=== PATIENT | female | born 1960 | race Caucasian/White ===

== ENCOUNTER → 2016-09-08 | Outpatient (CLI) | payer OTHER ==
[~2016-09-08] MED LIST: ATOR40TA59 PO; BACL10TA PO; CITA20TA5 PO; CRAN200C PO; CYAN50LO PO; CYCL10TA2 PO; DIAZEPAM10 MG PO; DICY10CA3 PO; DILT240C2 PO; ESTR0.9T PO; GABA-586 PO; GARL10002 PO; HYDR-2762 PO; HYDR25TA9 PO; HYDR4TAB PO; LABE300T PO; LEVO25TA4 PO; LEVO50TA5 PO; LIDO700A4 TP; MELO-156 PO; MIRT15TA PO; MIRT30TA3 PO; OMEG1CAP43 PO; OMEP40CA5 PO; OXYC-250 PO; OXYC-323 PO; ROPI1TAB PO
--- NOTE | 2016-09-08 20:49 | PAIN ---
DATE OF SERVICE: 09/08/2016 DIAGNOSES: 1. Lumbar radiculopathy with lumbar degenerative disk disease. 2. Cervical radiculopathy with cervical degenerative disk disease and post-cervical laminectomy syndrome. 3. Myofascial pain. HISTORY OF PRESENT ILLNESS: The patient is a 56-year-old female who returns for followup status post trigger point injections of the cervical and upper thoracic distribution, also medication management with oxycodone. The patient reports she had been doing much better after the last visit. She has had some significant pain in the left shoulder and upper extremity. We tried the Medrol Dosepak and some physical therapy, which has helped significantly. The patient also had her hips evaluated with orthopedist and she is doing more physical therapy for the left hip pain that she is having, which she reports is helping to a moderate extent. The patient reports no new motor or sensory deficits, no new bowel or bladder incontinence or other complaints. The patient reports pain in the base of the neck, more in the left shoulder, now in the left upper back, is a constant aching pain, is dull and stabbing, which is a 7 without medication, but is a 0 with medication Percocet that she is taking. The patient reports good results with this, again 75%-80% improvement with medications alone without any side effects. The patient reports no new changes or other conditions and feels that she is doing much better than she was on her last visit. PHYSICAL EXAMINATION: VITAL SIGNS: Shows blood pressure 130/70, pulse 83, respirations 20, temperature 98.3 degrees Fahrenheit, weight is 181 pounds. GENERAL: The patient is awake, alert, oriented, appropriate, very pleasant demeanor. HEENT: Shows normocephalic, atraumatic. Extraocular movements are intact and symmetrical. Oral cavity shows mucous membranes moist and pink. Dentition is intact. NECK: Shows anterior throat supple without palpable lymphadenopathy noted. Swallow reflex is symmetrical. CHEST: Shows normal on inspection. Breath sounds are clear to auscultation bilaterally. HEART: Shows S1 and S2 clear. ABDOMEN: Soft, obese, nontender, nondistended. BACK: Shows spine grossly midline. Cervical paraspinous muscle shows some moderate tenderness with palpation in the middle and inferior aspect of the left cervical paraspinous musculature with palpation ____ appears symmetrical on inspection with the right side. There is also some tenderness in the rhomboid distribution as well as the thoracic paraspinous musculature on the left side, some in the suprascapular region as well, less in the intrascapular region on the left side. EXTREMITIES: Upper extremities showed deep tendon reflexes 2+ in the biceps and triceps tendons. Motor exam ____ 4/5 with left volumetric weigher strength and 5/5 on the right. PLAN: Options were discussed with the patient. The patient's old chart was reviewed as was her current medication regimen and updated. Current review of systems is updated today as well. We will hold on any further injections as she feels she is doing much better. She would like to maintain her stretching and strengthening exercises that she does as well as heat and massage therapy. We will refill the patient's oxycodone with instructions, side effects to be aware of discussed as well. The patient will follow up in approximately 4 weeks or as needed. NATHAN VALERIO MD DR: SUMMER/jennie JOB#: [id number] / [id number]
== END | disposition home or self-care (01) ==
LOC: PNCL 10:14
PROVIDERS: ATTEND Anesthesiology
DX: M51.16 Intervertebral disc disorders with radiculopathy, lumbar region (principal); M50.10 Cervical disc disorder with radiculopathy, unspecified cervical region; M96.1 Postlaminectomy syndrome, not elsewhere classified; M79.1 Myalgia
CPT/HCPCS: 99212

== ENCOUNTER → 2016-10-21 | Outpatient (CLI) | payer OTHER ==
[~2016-10-21] MED LIST changes: +BUPIVACAINE MPF 0.25% 10 ML VIAL. ONE; +methylPREDNISolone ACETATE 40 MG/ML VIAL. ONE
--- NOTE | 2016-10-22 15:56 | PAIN ---
DATE OF SERVICE: 10/21/2016 PROGRESS NOTE FOR PAIN CLINIC DIAGNOSES: 1. Lumbar radiculopathy with lumbar degenerative disk disease. 2. Cervical radiculopathy with cervical degenerative disk disease and cervical post-laminectomy syndrome. 3. Myofascial pain. HISTORY OF PRESENT ILLNESS: The patient is a 56-year-old female, who returns for followup status post trigger point injections as well as previous cervical epidural steroid injections and medication management. The patient has been taking oxycodone recently, but reports this is upsetting her stomach significantly and we discussed some changes with this as well. The patient would like to try something different as she is having to eat food each time she takes her pills. She has been gaining some weight as well and reports that it is tearing upper stomach to a significant extent. The patient reports no other side effects with the medication and reports about a 50-75% improvement with the medication, but would prefer to take extended release which she can only take it once a day. We had tried Hysingla with the patient previously and we will try this again at a different dose to see if she has better response at this time to the medication and better longevity. The patient reports otherwise doing well, still significant pain in the base of the neck as well as in the left side as well as the shoulder and some in the upper back as well as the posterior aspect of the left shoulder. The patient reports some worse pain with movement of the neck especially on the left side in extension as a constant aching pain, worse at times, anywhere from 3-8 on a scale of 10 and currently at 3 on a scale of 10. Again, fairly well controlled with her Percocet, but tearing up her stomach to some extent as well. PHYSICAL EXAMINATION: VITAL SIGNS: The patient's blood pressure 117/75, pulse 90, respirations 18, temperature 98.4 degrees Fahrenheit. Height is 5 feet 3 inches, weighs 183 pounds. GENERAL: The patient is awake, alert, oriented, appropriate, very pleasant demeanor. HEENT: Shows normocephalic, atraumatic. Extraocular movements are intact and symmetrical. Oral cavity, mucous membranes are moist and pink. Dentition is intact. NECK: Shows anterior throat supple without palpable lymphadenopathy noted. Swallow reflex is symmetrical. CHEST: Shows normal on inspection. Breath sounds are clear to auscultation bilaterally. HEART: Shows S1 and S2 clear. ABDOMEN: Obese, soft, nontender, nondistended. No palpable organomegaly is noted. No rebound or guarding demonstrated. BACK: The patient's back shows spine grossly midline. Normal appearing cervical and lordotic curvatures and thoracic kyphotic curvature. With palpation, there is significant tenderness in the posterior cervical paraspinous musculature inferiorly as well as in the superior medial and lateral trapezius on the left, very significant, very firm and tender rope-like musculature consistent with trigger point areas of musculature, very tender with palpation, but without significant radiation. The patient's neck shows good rotation; again significant tenderness with far left lateral rotation and extension, but not with forward flexion or right lateral rotation. EXTREMITIES: Upper extremities show deep tendon reflexes at 2+ in the biceps and triceps tendons. Motor exam is approximately 4 on a scale of 5 with track rider on the left and 5/5 on the right. PLAN: Options were discussed with the patient and the patient's old chart was reviewed as her current medication regimen and updated. Current review of systems updated today as well. We will proceed with trigger point injections of the bilateral trapezius musculature as well as left cervical paraspinous musculature, left rhomboid musculature and right trapezius as well. Risks were discussed including but not limited to bleeding, infection, possibility of intravascular injection sequelae, pneumothorax, side effects of steroid medication, spread of local anesthetic and numbness as well as poor results regarding pain control. The patient understands and wishes to proceed. The patient will return to clinic in approximately 2 weeks. We will change the patient's medication from Percocet to extended release hydrocodone, Hysingla, 40 mg once daily. The patient was given instruction as well as side effects to be aware of with medication. The patient will follow up in approximately 4 weeks or sooner. We asked for her to call with a progress note at the end of next week when she has had some time to try the new medication and get some feedback on at that time. DIAGNOSES: 1. Myofascial pain. 2. Cervical radiculopathy with cervical degenerative disk disease and post-cervical laminectomy syndrome. PROCEDURE: Trigger point injections of the bilateral trapezius musculature, the bilateral rhomboid musculature, left cervical paraspinous musculature using 25-gauge needle. Medication injected is total of 9 mL of 0.25% bupivacaine and total of 40 mg Depo-Medrol. CONDITION AT DISCHARGE: The patient tolerated the procedure well, had no complications. NATHAN VALERIO MD DR: SUMMER/jennie JOB#: [id number] / [id number]
== END | disposition home or self-care (01) ==
LOC: PNCL 13:10
PROVIDERS: ATTEND Anesthesiology
DX: M79.1 Myalgia (principal); M50.120 Mid-cervical disc disorder, unspecified level; M96.1 Postlaminectomy syndrome, not elsewhere classified; M51.17 Intervertebral disc disorders with radiculopathy, lumbosacral region
CPT/HCPCS: 20553; J1030; J3490

== ENCOUNTER → 2016-12-30 | Outpatient (CLI) | payer OTHER ==
[~2016-12-30] MED LIST changes: -BUPIVACAINE MPF 0.25% 10 ML VIAL. ONE; -methylPREDNISolone ACETATE 40 MG/ML VIAL. ONE
--- NOTE | 2016-12-31 02:42 | PAIN ---
DATE OF SERVICE: 12/30/2016 PROGRESS NOTE FOR PAIN CLINIC DIAGNOSES: 1. Lumbar radiculopathy with lumbar degenerative disk disease. 2. Cervical radiculopathy, cervical degenerative disease and post-cervical laminectomy syndrome. 3. Myofascial pain. HISTORY OF PRESENT ILLNESS: The patient is a 56-year-old female, who returns for followup status post trigger point injections as well as medication management with hydrocodone. The patient had been doing fairly well, but reports that recently she has had weaned herself turn off the hydrocodone that was not working very well with had an extended release form as well and she seems to be well developing some physiologic tolerance to the medication and did try tramadol, which made her feel very ill and dysphoric. She tried only once and has been without pain medicine now significant increase in pain from 4 to 10 on a scale of 10 and 4 is with taking one of her 's Percocets. She did see on her visit today. Otherwise, the pain is in the base of the shoulders, neck, worse on the left than the right, aching, sharp, tingling, burning, severe, constant, radiating pain. The patient reports she has physical therapy ordered from her orthopedic surgeon as she does have a torn rotator cuff on the left side, but she has not started yet as she is afraid that the pain will get worse. She has not had some pain medication through this. The patient reports no new motor or sensory deficits, no new other complaints. PHYSICAL EXAMINATION: VITAL SIGNS: The patient's blood pressure is 147/84, pulse 87, respirations are 18, temperature is 98.1 degrees Fahrenheit. Height is 5 feet 3 inches, weight 184 pounds. GENERAL: The patient is awake, alert, oriented, appropriate, very pleasant demeanor. HEENT: Head shows normocephalic, atraumatic. Extraocular movements are intact and symmetrical. Oral cavity, mucous membranes are moist and pink. Dentition is intact. NECK: Shows anterior throat supple without palpable lymphadenopathy noted. Swallow reflex is symmetrical. CHEST: Shows normal on inspection. Breath sounds clear to auscultation bilaterally. HEART: Shows S1 and S2 clear. ABDOMEN: Soft, nontender, nondistended, obese. No organomegaly is noted. No rebound or guarding demonstrated. BACK: Shows spine grossly midline. Slight exaggeration of thoracic kyphosis and some mild flattening of lumbar lordotic curvature. Cervical paraspinous musculature shows some moderate tenderness with palpation bilaterally in the middle and inferior aspect of the cervical paraspinous muscles, also some tenderness on the right trapezius into the right lateral and posterior deltoid with palpation. The patient shows some decreased pain are decreased rotation range of motion and increase in pain with abduction of the left shoulder past about 45-50 degrees, but can raise is 90 degrees, but with has some significant loss of strength on resistance on the left side only. EXTREMITIES: Upper extremity deep tendon reflexes are 2+ in the biceps and triceps tendons. Motor exam in sensory scientist strength is 5/5 and equal. Options were discussed with the patient and the patient's old chart was reviewed as her current medication regimen updated. Current review of systems updated today as well. We will proceed with changing her hydrocodone to oxycodone 10 mg with instructions and side effects to be aware of discussed medication. The patient was given 1 month supply. Also, refill patient's Lidoderm patches as she reports good relief with these in the neck and shoulder as well as the low back. The patient was given instruction as well as side effects to be aware with each of the medications and will follow in approximately 4 weeks as scheduled was encouraged to follow up with her physical therapy scheduling ____ her health plan specialist and she is plan to do this earlier of this week. NATHAN VALERIO MD DR: SUMMER/jennie JOB#: [id number] / [id number]
== END | disposition home or self-care (01) ==
LOC: PNCL 11:29
PROVIDERS: ATTEND Anesthesiology
DX: M51.16 Intervertebral disc disorders with radiculopathy, lumbar region (principal); M50.10 Cervical disc disorder with radiculopathy, unspecified cervical region; M96.1 Postlaminectomy syndrome, not elsewhere classified; M79.1 Myalgia
CPT/HCPCS: 99214

== ENCOUNTER → 2017-03-17 | Outpatient (CLI) | payer OTHER ==
[~2017-03-17] MED LIST changes: -CRAN200C PO; +CRAN200C2 PO; -MELO-156 PO; +MELO7.5T29 PO; -OXYC-250 PO; +OXYC-328 PO
--- NOTE | 2017-03-18 06:45 | PAIN ---
DATE OF SERVICE: 03/17/2017 PROGRESS NOTE FOR PAIN CLINIC DIAGNOSES: 1. Lumbar radiculopathy with lumbar degenerative disk disease. 2. Cervical radiculopathy with cervical degenerative disk disease. 3. Myofascial pain. HISTORY OF PRESENT ILLNESS: The patient is a 56-year-old female, who returns for followup status post trigger point injections as well as medication management with oxycodone. The patient reports she has been doing very well with this with about an 80% improvement with the medications as well as trigger points in her upper back and more in the left shoulder than the right. The patient reports she is doing fairly well; however, she is having some gastrointestinal complaints lately with undergoing workup. She has an upper endoscopy scheduled in the first part of March. The patient reports that her pain has been well controlled with the medications, still has a significant pain in the base of the neck, shoulder, upper back, mid back on the left side greater than right, and as well as the left hip. The patient reports a 10 on a scale of 10 at its worst, a 3 at its least, it is a 3 currently. The patient reports a burning, aching, radiating mostly in the shoulder and neck, but again well controlled and feels fairly well today on her visit. The patient reports it does not awaken her from sleep at night. She feels much better with lying down, again medication helping with this as well. The patient reports no new motor or sensory deficits. No new bowel or bladder incontinence, but still significant gastrointestinal pain. She has been started on Zofran and Pepcid has been increased as well with some decrease in pain and reflux, but still significant. Also on Dexilant q.a.m. PHYSICAL EXAMINATION: VITAL SIGNS: Today the patient's blood pressure is 161/88, pulse 90, respirations 18, temperature 98.4 degrees Fahrenheit, height is 5 feet 3 inches, weighs 181 pounds. GENERAL: The patient is awake, alert, oriented, appropriate, very pleasant demeanor. HEENT: Head shows normocephalic, atraumatic. Extraocular movements are intact, symmetrical. Oral cavity, mucous membranes are moist and pink. Dentition is intact. NECK: Shows anterior throat supple without palpable lymphadenopathy noted. Swallow reflex is symmetrical. Neck shows full rotational motion of the cervical spine without difficulty or tenderness including extension and flexion. CHEST: Shows normal on inspection. Breath sounds clear to auscultation bilaterally. HEART: Shows S1 and S2 clear. No murmurs auscultated. ABDOMEN: Soft, obese, nontender, nondistended. No palpable organomegaly noted. No rebound or guarding demonstrated. No significant discomfort in the epigastric region with palpation as well. BACK: The patient's back shows spine grossly midline. Slight exaggeration of thoracic kyphosis and some mild flattening of lumbar lordotic curvature. No asymmetry and midline spine as noted. With palpation shows some moderate tenderness to palpation in the superior medial aspect of the trapezius on the left greater than right, but appears symmetrical without specific trigger points. She has very firm, diffuse tenderness throughout the trapezius as well as the rhomboid musculature on the left side, as well as the suprascapular region. Right side is supple and nontender. The patient shows only very mild tenderness with palpation in the low lumbar distribution of the lumbar paraspinous muscles, but only diffusely. EXTREMITIES: Upper extremity deep tendon reflexes at 2+ in the biceps and triceps tendons. Lower extremities are 1+ in the patellar and tendo calcaneus tendons. Motor exam is strong with shelf stocker strength rated at 5/5 as is biceps and triceps flexion, also dorsiflexion, extension, quadriceps and hamstring flexion rated at 5/5 and equal. Peripheral pulses are 2+ in the radial distribution and 1+ posterior tibial. No peripheral edema is noted in any of the extremities. Options were discussed with the patient and the patient's old chart was reviewed as her current medication regimen and updated. Current review of systems updated today as well. We will proceed with refill of oxycodone as well as Lidoderm patches with instructions, side effects to be aware of discussed with each of the medications. The patient was given a 2-month prescription. Return at that time or sooner if the myofascial pain increases and desires trigger points as she has done well with these in the past. NATHAN VALERIO MD DR: SUMMER/jennie JOB#: [id number] / [id number]
== END | disposition home or self-care (01) ==
LOC: PNCL 10:09
PROVIDERS: ATTEND Anesthesiology
DX: M51.36 Other intervertebral disc degeneration, lumbar region (principal); M50.30 Other cervical disc degeneration, unspecified cervical region; M54.12 Radiculopathy, cervical region; M54.16 Radiculopathy, lumbar region; M79.1 Myalgia
CPT/HCPCS: G0463

== ENCOUNTER → 2017-06-11 | Outpatient (CLI) | payer OTHER ==
[~2017-06-11] MED LIST changes: +DEXL60CA2 PO; +FAMO-63 PO; +ONDA4TAB7 PO; +VALIUM10 MG PO
--- NOTE | 2017-06-11 21:25 | PAIN ---
DATE OF SERVICE: 06/11/2017 PROGRESS NOTE FOR PAIN CLINIC DIAGNOSES: 1. Lumbar radiculopathy with lumbar degenerative disk disease. 2. Cervical radiculopathy with cervical degenerative disk disease. 3. Myofascial pain. HISTORY OF PRESENT ILLNESS: The patient is a 56-year-old female, who returns for followup status post trigger point injections as well as medication management with oxycodone. The patient reports that she has been doing very well with this and has been a very stable regimen. She has recently fallen, however about 5 weeks ago in her kitchen and injured her left shoulder. She has had some rotator cuff injury to the shoulder before, it has been putting off having a repair, but has now decided to go ahead and schedule this with her orthopedic surgeon. The patient reports that the pain is fairly well controlled, however with the oxycodone. She is not having too many side effects with the oxycodone, some constipation now was discussed. We will try some new medication for that today. The patient reports her pain is mainly in the base of the neck and left shoulder at this time, also in the low back and bilateral lower extremities, but which is well controlled. The patient reports her pain in the shoulder on the left and the neck is a 9 on a scale of 10 at its worse, 4 on average, is 4 today. The patient reports it is an aching, sharp, tingling and constant pain, worse after the fall a few weeks ago as noted. The patient reports no new motor or sensory deficits, no new bowel or bladder incontinence. The patient reports the pain awakens her from sleep sporadically, but not every night, usually when she lays on her left side or left shoulder. PHYSICAL EXAMINATION: VITAL SIGNS: Shows blood pressure 135/79, pulse is 87, respirations 20, temperature is 98.2 degrees Fahrenheit, height is 5 feet 3 inches, weight is 177 pounds. GENERAL: The patient is awake, alert, oriented, appropriate, very pleasant demeanor. HEENT: Head shows normocephalic, atraumatic. Extraocular movements are intact and symmetrical. Oral cavity, mucous membranes are moist and pink. Dentition is intact. NECK: Shows anterior throat supple without palpable lymphadenopathy noted. Swallow reflex is symmetrical. CHEST: Shows normal on inspection. Breath sounds are clear to auscultation bilaterally. HEART: Shows S1 and S2 clear. No murmurs auscultated. ABDOMEN: Soft, nontender, nondistended. No palpable organomegaly is noted. No rebound or guarding demonstrated. BACK: Shows spine grossly in the midline with a normal appearing thoracic kyphosis and lumbar lordotic curvature. Paraspinous musculature in the cervical distribution shows some minor tenderness with palpation on the left in the superior medial trapezius transferring out into the lateral trapezius with much more tender musculature in this region. The patient shows good rotational motion; however, the cervical spine, both laterally as well as extension and flexion without significant increase in pain. Low back shows good rotational motion as well without pain increased. Lumbar paraspinous musculature is symmetrical with palpation and shows some moderate tenderness with palpation bilaterally, but without radiation, without trigger points noted. EXTREMITIES: Lower extremities showed deep tendon reflexes 1+ in the patellar and tendo calcaneus tendons are equal. Motor exam is strong with 5/5 dorsiflexion, extension, quadriceps and hamstring flexion and symmetrical. Peripheral pulses are 1+. Upper extremities show deep tendon reflexes are 2+ in the biceps and triceps tendons. Motor exam is strong with meat counter worker strength, rated at 5/5 with biceps and triceps flexion, slightly weaker on the left with biceps flexion only with about a 4/5 and triceps at 5/5, right side is 5/5 and symmetrical. Peripheral pulses are 2+ in radial distribution without edema. PLAN: Options were discussed with the patient. The patient's old chart was reviewed as her current medication regimen updated. Current review of systems updated today as well and we will hold on any further injections at this time as she would like to wait for this, while she scheduled her rotator cuff surgery for her left shoulder. We will refill the patient's oxycodone for a 2-month supply and also Lidoderm patches and we will try new medication for constipation, Symproic 0.2 mg daily. The patient was given instructions as well as side effects to be aware of with the new medication as well as with her old medications and will follow up in approximately 2 months or sooner if necessary. NATHAN VALERIO MD DR: SUMMER/jennie JOB#: [id number] / [id number]
== END | disposition home or self-care (01) ==
LOC: PNCL 12:49
PROVIDERS: ATTEND Anesthesiology
DX: M51.16 Intervertebral disc disorders with radiculopathy, lumbar region (principal); M50.10 Cervical disc disorder with radiculopathy, unspecified cervical region; K59.00 Constipation, unspecified
CPT/HCPCS: 99212

== ENCOUNTER → 2017-08-18 | Outpatient (CLI) | payer OTHER | END | disposition home or self-care (01) | LOC: PNCL 13:34 | DX: M51.16 Intervertebral disc disorders with radiculopathy, lumbar region (principal); M50.10 Cervical disc disorder with radiculopathy, unspecified cervical region | CPT/HCPCS: 99212 ==

== ENCOUNTER → 2017-11-03 | Outpatient (CLI) | payer OTHER | END | disposition home or self-care (01) | LOC: PNCL 12:56 | DX: M51.16 Intervertebral disc disorders with radiculopathy, lumbar region (principal); Z98.890 Other specified postprocedural states | CPT/HCPCS: 99212 ==

== ENCOUNTER → 2017-12-29 | Outpatient (CLI) | payer OTHER | END | disposition home or self-care (01) | LOC: PNCL 12:51 | DX: M51.16 Intervertebral disc disorders with radiculopathy, lumbar region (principal); M50.10 Cervical disc disorder with radiculopathy, unspecified cervical region; M19.012 Primary osteoarthritis, left shoulder | CPT/HCPCS: 99212 ==

== ENCOUNTER → 2018-02-23 | Outpatient (CLI) | payer OTHER | END | disposition home or self-care (01) | LOC: PNCL 11:28 | DX: M51.16 Intervertebral disc disorders with radiculopathy, lumbar region (principal); M50.10 Cervical disc disorder with radiculopathy, unspecified cervical region; M25.512 Pain in left shoulder; M79.1 Myalgia | CPT/HCPCS: 99212 ==

== ENCOUNTER → 2018-04-20 | Outpatient (CLI) | payer OTHER ==
[~2018-04-20] MED LIST changes: -CITA20TA5 PO; +CITA20TA6 PO; +CITA20TA9 PO; -LABE300T PO; +LABE300T2 PO; +LORA1TAB PO; +PROP20TA PO
--- NOTE | 2018-04-20 17:15 | PAIN ---
DATE OF SERVICE: 04/20/2018 DIAGNOSES: 1. Lumbar radiculopathy with lumbar degenerative disk disease. 2. Cervical radiculopathy with cervical degenerative disk disease. 3. Left shoulder joint pain. 4. Myofascial pain. HISTORY OF PRESENT ILLNESS: The patient is a 57-year-old female who returns for followup status post previous trigger point injection as well as medication management with both oxycodone and Lidoderm patches. The patient reports she is doing fairly well with this, on a very stable regimen with her medications and Lidoderm patches with good pain relief both of the medial and low back, but she is having significant increased pain in her left hip and had a recent MRI scan of the left hip showing consistent with partial tear and/or tendinitis of the distal gluteus medius minimus at the insertion of the greater trochanter with mild inflammation adjacent. The patient reports she is seeing an orthopedic physician about this tomorrow near [facility]. She is still having significant pain in the low back, left leg, burning, radiating, cramping, stabbing at times. The patient reports it is a 10 on a scale of 10 at its worst, 9 on average and a 5 at its least and is a 9 today. The patient reports it is worse with walking, standing, changing positions, better with sitting or lying down, does awaken her from sleep occasionally, but not every night. The patient reports no new motor or sensory deficits, no side effects with the medications. Otherwise, doing fairly well, reports the medications still decrease the pain by about 70-75%, even with the new pain in the left hip. PHYSICAL EXAMINATION: VITAL SIGNS: The patient's blood pressure is 146/86, pulse 87, respirations 18, temperature is 98.7 degrees Fahrenheit, height is 5 feet 3 inches, weight is 184 pounds. GENERAL: The patient is awake, alert, oriented, appropriate, very pleasant demeanor. HEENT: Head shows normocephalic, atraumatic. Extraocular movements are intact, symmetrical. Oral cavity, mucous membranes are moist and pink. Dentition is intact. NECK: Shows anterior throat supple without palpable lymphadenopathy noted. Swallow reflex symmetrical. CHEST: Shows normal with inspection. Breath sounds clear to auscultation bilaterally. HEART: Shows S1, S2 clear. No murmurs auscultated. ABDOMEN: Soft, nontender, nondistended. No palpable organomegaly. No rebound or guarding demonstrated. BACK: Shows spine grossly in the midline. Normal appearing cervical lordotic curvature, thoracic kyphotic curvature, and lumbar lordotic curvature. The patient's cervical paraspinous muscle shows symmetrical on inspection, with palpation shows some mild tenderness only in the inferior aspect of the cervical paraspinous muscles diffusely with good rotational motion both laterally as well as extension and flexion without pain reported. Lumbar spine shows likewise symmetrical musculature with moderate tenderness with palpation in the lower lumbar distributions, more on the left than the right, but without significant radiation. The patient has good rotational motion, extension and flexion as well without difficulty. LOWER EXTREMITIES: Show deep tendon reflexes 1+ in the patellar and tendo-calcaneus tendons. Motor exam is strong 5/5 dorsiflexion and extension. Peripheral pulses are 1+ posterior tibia. No peripheral edema is noted. Options were discussed with the patient. The patient's old chart was reviewed as her current medication regimen updated. Current review of systems updated today as well. We will refill the patient's oxycodone for 2-month prescription. The patient has had appropriate urinalysis as well as appropriate K-TRACS reporting to date. Also, we will refill Lidoderm patch as she does quite well with these as well in the low back and left hip. The patient will follow up with her orthopedic surgeon tomorrow, and she will keep us informed if any interventional procedures are recommended as well. The patient will follow up in approximately 2 months or sooner as necessary. NATHAN VALERIO MD DR: SUMMER/jennie JOB#: [id number] / [id number]
== END | disposition home or self-care (01) ==
LOC: PNCL 13:15
PROVIDERS: ATTEND Anesthesiology
DX: M51.16 Intervertebral disc disorders with radiculopathy, lumbar region (principal); M50.10 Cervical disc disorder with radiculopathy, unspecified cervical region; M19.012 Primary osteoarthritis, left shoulder; M79.1 Myalgia
CPT/HCPCS: G0463

== ENCOUNTER → 2018-06-15 | Outpatient (CLI) | payer OTHER ==
--- NOTE | 2018-06-15 18:17 | PAIN ---
DATE OF SERVICE: 06/15/2018 DIAGNOSES: 1. Lumbar radiculopathy with lumbar degenerative disk disease. 2. Cervical radiculopathy with cervical degenerative disk disease. 3. Myofascial pain. 4. Left shoulder joint pain. HISTORY OF PRESENT ILLNESS: The patient is a 57-year-old female who returns for a followup status post medication management with both oxycodone and Lidoderm patches. The patient reports she is doing fairly well with this with about a 70-75% improvement with the pain medicine itself; however, the back is her chief complaint today with pain radiating to the left lower extremity, mostly in the posterior gluteus, posterior lateral thigh and posterior calf on the left side; worse with walking, standing, change in positions. The patient reports it keeps her from going to sleep. Once she is asleep, she sleeps fairly well. Pain is reported as a 10 on a scale of 10 at its worst, 6 on average, 4 at its least and is a 6 today. The patient reports it is aching, dull, burning, radiating, becoming more constant, more severe in the low back and left lower extremity as previously. The patient reports no new motor or sensory deficits, no new bowel or bladder incontinence. PHYSICAL EXAMINATION: VITAL SIGNS: The patient's blood pressure is 138/79, pulse 79, respirations are 16, temperature is 99.8 degrees Fahrenheit and weight is 183 pounds. GENERAL: The patient is awake, alert, oriented, appropriate, very pleasant demeanor. HEENT: Shows normocephalic, atraumatic. Extraocular movements are intact, symmetrical. Oral cavity shows mucous membranes moist and pink. Dentition is intact. NECK: Shows anterior throat supple without palpable lymphadenopathy noted. Swallow reflex is symmetrical. CHEST: Shows normal on inspection. Breath sounds clear to auscultation bilaterally. HEART: Shows S1, S2 clear. No murmurs auscultated. ABDOMEN: Soft, nontender, nondistended. No palpable organomegaly is noted. No rebound or guarding demonstrated. MUSCULOSKELETAL: Back shows spine grossly in the midline, normal appearing thoracic kyphosis and minor flattening of the lumbar lordotic curvature. Lumbar paraspinous muscle shows symmetrical on inspection; on palpation shows some moderate tenderness, but only diffusely in the low lumbar distribution bilaterally. The patient has good rotational motion of the lumbar spine, both laterally as well as extension and flexion without significant difficulty. Lower extremities show deep tendon reflexes 1+ in the patellar and tendo-calcaneus tendons. Motor exam is strong with 5/5 dorsiflexion and extension. Peripheral pulses are 1+ posterior tibia. No peripheral edema is noted bilaterally. PLAN: Options were discussed with the patient. The patient's old chart was reviewed as her medication regimen and updated. Current review of systems updated today as well and we will wait for results from the patient's MRI scan, which were requested from [facility] and discuss further potential for a lumbar epidural steroid injection as the patient is interested in this and would like to proceed, but would like to see the results of her MRI scan first. We requested that today, but is unavailable at the time of dictation. We will have the patient return in approximately 1 week and plan on lumbar epidural steroid injection at that time, pending MRI results. The patient was given refill prescription for oxycodone as well as Duragesic patch. The patient has had appropriate urinalysis and K-TRACS reporting to date. We will refill this for a 2-month period with instructions, side effects to be aware of discussed with each of the medications. The patient will follow up as scheduled. NATHAN VALERIO MD DR: SUMMER/jennie JOB#: [id number] / [id number]
== END | disposition home or self-care (01) ==
LOC: PNCL 13:05
PROVIDERS: ATTEND Anesthesiology
DX: M51.16 Intervertebral disc disorders with radiculopathy, lumbar region (principal); M50.10 Cervical disc disorder with radiculopathy, unspecified cervical region; M79.18 Myalgia, other site; M25.512 Pain in left shoulder
CPT/HCPCS: 99212

== ENCOUNTER → 2018-07-05 | Outpatient (CLI) | payer OTHER ==
--- NOTE | 2018-07-06 03:38 | PAIN ---
DATE OF SERVICE: 07/05/2018 DIAGNOSES: Lumbar radiculopathy with lumbar degenerative disk disease. HISTORY OF PRESENT ILLNESS: The patient is a 58-year-old female who returns for followup status post medication management. Also some previous trigger point injections. The patient is having significant pain in the low back and left lower extremity as previously. The patient reports this is beginning to get worse in the left lateral anterior thigh, anterior medial knee and medial lower leg radiating across the low back as well. The patient reports the pain is a 9 on a scale of 10 at its worst, 5 on average, 4 at its least and is a burning, aching, sharp, shooting, radiating, becoming more constant pain as well in the left leg and low back. The patient did have an MRI scan, which is dated 07/03/2017 showing degenerative changes at L3-L4 level with minimal disk bulge at L3-L4 causing minimal foraminal tapering bilaterally without impingement on the canal, minimal disk bulge, early posterior facet degenerative change at L4-L5 causing minimal right and mild left foraminal stenosis and no impingement on the canal. The patient reports it is worse with walking, standing, changing positions, radiating pain into the left lower extremity with sitting for prolonged periods as well. The patient reports it is better with lying down. It does awaken her from sleep about every 4-6 hours on the left side, especially if she lays on her left side. The patient reports no loss of motor function, but significant fatigability. The patient has been doing stretching and strengthening exercises on her own, has had physical therapy multiple times with the last about 4 months ago by her report. Also doing stretching and strengthening daily on her own from the physical therapy routines that she has been taught and walking daily or trying to as the pain is beginning to limit her ability to do so. The patient has been taking xakr-wrk-vpoztly Advil, ibuprofen as well as Tylenol and Aleve for the past looks like about 3 months or so in addition to her narcotic analgesics without significant improvement in this particular pain. Narcotic analgesics do decrease the pain by about 75%, but the nonsteroidal anti-inflammatories only decreasing by about 50% or so. The patient reports no side effects with these medications, but again the pain is still persistent and radiating into the left lower extremity in roughly a L3-L4 and L4-L5 dermatomal pattern. PHYSICAL EXAMINATION: VITAL SIGNS: Today, the patient's blood pressure is 144/87, pulse 90, respirations 18, temperature 98.3 degrees Fahrenheit, height 5 feet 2 inches and weighs 185 pounds. GENERAL: The patient is awake, alert, oriented, appropriate, very pleasant demeanor. HEENT: Head shows normocephalic and atraumatic. Extraocular movements are intact and symmetrical. Oral cavity: Mucous membranes are moist and pink. Dentition is intact. NECK: Shows anterior throat is supple without palpable lymphadenopathy noted. Swallow reflex is symmetrical. CHEST: Shows normal with inspection. Breath sounds are clear to auscultation bilaterally. HEART: Shows S1 and S2 clear. No murmurs are auscultated. ABDOMEN: Soft, nontender and nondistended. No palpable organomegaly is noted. No rebound or guarding demonstrated. BACK: Shows spine grossly in the midline. Normal appearing thoracic kyphosis and some minor flattening of the lumbar lordotic curvature. Lumbar paraspinous muscle shows symmetrical on inspection. With palpation shows some moderate tenderness diffusely bilaterally, but without radiation. The patient shows good rotational motion of the lumbar spine, both laterally as well as extension and flexion. No tenderness over the sacrum or sacroiliac regions or the spinous processes. EXTREMITIES: The patient's lower extremities show deep tendon reflexes at 1+ in the patellar and tendo-calcaneus tendons and equal. Motor exam is 5/5 with dorsiflexion, extension, quadriceps and hamstring flexion and symmetrical as well. Peripheral pulses are 1+ posterior tibia. No peripheral edema is noted. The patient does have a mild positive straight leg raise on the left side at about 40 degrees with decreased knee flexion, right side is negative. Gaenslen's and Javier's maneuvers are negative bilaterally. The patient is able to stand, stand on her toes without significant difficulty or loss of balance, walks with a slight shuffling gait, appears to favor the left lower extremity, very mildly, but not using any assistive device to ambulate. Options were discussed with the patient. The patient's old chart was reviewed as was her current medication regimen updated. Current review of systems updated today as well. The patient is having significant radicular pain in the left lower extremity in L3-L4 and L4-L5 dermatomal pattern, status post physical therapy, status post nonsteroidal anti-inflammatory use for 3 months without significant improvement, also continues daily activity, stretching and strengthening exercises on her own and walking with still significant pain and worsening radicular pain on the left in the L3-L4 and L4-L5 dermatomal distribution. We will preauthorize the patient for a lumbar epidural steroid injection in light of her new MRI scan in a radicular pattern on the left side as noted. The patient will be preauthorized. The patient will return to the clinic once this is obtained and we will plan on lumbar epidural steroid injection at that time. NATHAN VALERIO MD DR: SUMMER/jennie JOB#: [id number] / [id number]
== END | disposition home or self-care (01) ==
LOC: PNCL 13:02
PROVIDERS: ATTEND Anesthesiology
DX: M51.16 Intervertebral disc disorders with radiculopathy, lumbar region (principal)
CPT/HCPCS: 99212

== ENCOUNTER → 2018-07-21 | Outpatient (CLI) | payer OTHER ==
[~2018-07-21] MED LIST changes: +HYDR-2145 PO; -HYDR-2762 PO; +HYDR-2765 PO; -HYDR25TA9 PO; +IOHEXOL 180 MG/ML 10 ML VIAL. ONE; -OXYC-323 PO; -OXYC-328 PO; +OXYC1TAB15 PO; +OXYC1TAB22 PO; +methylPREDNISolone ACETATE 40 MG/ML VIAL. ONE; +methylPREDNISolone ACETATE 80 MG/ML VIAL. ONE
--- NOTE | 2018-07-21 20:28 | PAIN ---
DATE OF SERVICE: 07/21/2018 PROGRESS NOTE FOR PAIN CLINIC DIAGNOSES: 1. Lumbar radiculopathy with lumbar degenerative disk disease. 2. Cervical radiculopathy with cervical degenerative disk disease. 3. Myofascial pain. 4. Left shoulder joint pain with osteoarthritis. HISTORY OF PRESENT ILLNESS: The patient is a 58-year-old female who returns for followup status post evaluation and preauthorization for lumbar epidural steroid injection. The patient reports still significant pain in the low back and left hip, left lower extremity radiating to the lateral anterior aspect of the thigh and anterior thigh, medial thigh and medial lower leg but reports it is constant, becoming more severe, radiating, burning, sharp, shooting and dull and aching across the low back. The patient reports it is a 9 on a scale of 10 at its worse, 5 on average, 4 at its least and is a 5 today. The patient reports it is worse with walking, standing, changing positions; better with sitting or lying down; does not awaken her from sleep at night. The patient reports no new motor or sensory deficits and no bowel or bladder incontinence. PHYSICAL EXAMINATION: VITAL SIGNS: The patient's blood pressure 138/86, pulse 93, respirations 18 and temperature 98.3 degrees Fahrenheit. Height is 5 feet 2 inches, weighs 187 pounds. GENERAL: The patient is awake, alert, oriented, appropriate and very pleasant demeanor. HEENT: Head shows normocephalic and atraumatic. Extraocular movements are intact and symmetrical. Oral cavity: Mucous membranes moist and pink. Dentition is intact. NECK: Shows anterior throat supple without palpable lymphadenopathy noted. Swallow reflex is symmetrical. CHEST: Shows normal on inspection. Breath sounds clear to auscultation bilaterally. HEART: Shows S1 and S2 clear. No murmurs auscultated. ABDOMEN: Soft, nontender and nondistended. No palpable organomegaly is noted. No rebound or guarding demonstrated. BACK: Shows spine grossly in the midline. Normal appearing thoracic kyphosis and some minor flattening of lumbar lordotic curvature. Lumbar paraspinous musculature shows symmetrical on inspection. On palpation shows some moderate tenderness but only diffusely without radiation. The patient has good rotational motion of the lumbar spine, both laterally as well as extension and flexion without significant pain reported. EXTREMITIES: Lower extremities show deep tendon reflex is 1+ in the patellar and tendo-calcaneus tendons. Motor exam is strong with 5/5 dorsiflexion, extension, quadriceps and hamstring flexion and equal and symmetrical bilaterally. Peripheral pulses are 1+. No peripheral edema is noted. Options were discussed with the patient. The patient's old chart was reviewed as well as her current medication regimen updated. Current review of systems updated today as well. We will proceed with a lumbar epidural steroid injection today with fluoroscopic guidance. Risks were again discussed including, but not limited to bleeding, infection, possibility of epidural hematoma and subsequent neurologic compromise, dural puncture, headaches, spinal cord and/or nerve damage, side effects of steroid medication and poor results regarding pain control. The patient understands and wished to proceed. The patient will return to the clinic in approximately 2 weeks for followup, was counseled as to return appointment, activity level and side effects to be aware of. DIAGNOSIS: Lumbar radiculopathy with lumbar degenerative disk disease. PROCEDURE: Lumbar epidural steroid injection, translaminar approach, L4-L5 level using C-arm fluoroscopic guidance under sterile prep and drape using local anesthetic. MEDICATION INJECTED: A total of 120 mg Depo-Medrol plus 10 mL of preservative-free normal saline and 2 mL of Isovue for contrast. CONDITION AT DISCHARGE: Stable. The patient tolerated the procedure well and had no complications. NATHAN VALERIO MD DR: SUMMER/jennie JOB#: [id number] / [id number]
== END | disposition home or self-care (01) ==
LOC: PNCL 13:33
PROVIDERS: ATTEND Anesthesiology
DX: M51.16 Intervertebral disc disorders with radiculopathy, lumbar region (principal); Z79.899 Other long term (current) drug therapy; Z98.890 Other specified postprocedural states
CPT/HCPCS: 62323; J1030; J1040; Q9965

== ENCOUNTER → 2018-08-09 | Outpatient (CLI) | payer OTHER ==
[~2018-08-09] MED LIST changes: -GABA-586 PO; +GABA300C18 PO; -IOHEXOL 180 MG/ML 10 ML VIAL. ONE; -methylPREDNISolone ACETATE 40 MG/ML VIAL. ONE; -methylPREDNISolone ACETATE 80 MG/ML VIAL. ONE
--- NOTE | 2018-08-09 21:00 | PAIN ---
DATE OF SERVICE: 08/09/2018 PROGRESS NOTE FOR PAIN CLINIC DIAGNOSES: 1. Lumbar radiculopathy with lumbar degenerative disk disease. 2. Cervical radiculopathy with cervical degenerative disk disease. 3. Myofascial pain. HISTORY OF PRESENT ILLNESS: The patient is a 58-year-old female who returns for followup status post lumbar epidural steroid injection x 1. The patient reports about 70% improvement initially for the first 2 weeks. The pain is now about 50% improved overall, still doing well. The patient reports still some pain in the low back and left lower extremity, but significantly improved. She is very pleased with her progress thus far. Reports she has been increasing activity with greater ease and comfort, walking greater distances, doing activities at home with greater ease. She has been on her feet a lot lately doing some chores and feels much better. The patient reports it still awakens her from sleep, but only occasionally and is usually about 7 hours or so if it does at all. The patient reports pain is at 10 on scale of 10 at its worst, 4 on average, 4 at its least and is a 4 today. The patient reports it is aching, burning, stabbing, sharp, radiating, becoming more noticeable, more severe and slightly more constant as time goes on. The patient reports otherwise doing quite well. No new motor or sensory deficits. No new bowel or bladder incontinence or other complaints. PHYSICAL EXAMINATION: VITAL SIGNS: Today, the patient's blood pressure is 142/79, pulse is 83, respirations 18, temperature 98.2 degrees Fahrenheit. Height is 5 feet 3 inches and weight is 186 pounds. GENERAL: The patient is awake, alert, oriented, appropriate, very pleasant demeanor. HEENT: Head shows normocephalic, atraumatic. Extraocular movements are intact and symmetrical. Oral cavity: Mucous membranes moist and pink. Dentition is intact. NECK: Shows anterior throat supple without palpable lymphadenopathy noted. Swallow reflex symmetrical. CHEST: Shows normal with inspection. Breath sounds clear to auscultation bilaterally. HEART: Shows S1, S2 clear. No murmurs auscultated. ABDOMEN: Soft, obese, nontender, nondistended. No palpable organomegaly is noted. No rebound or guarding demonstrated. BACK: Shows spine grossly in the midline. Normal appearing thoracic kyphosis and lumbar lordotic curvature as well as cervical lordotic curvature. Lumbar paraspinous muscle shows symmetrical on inspection, on palpation shows some mild to moderate tenderness, but only diffusely in the low lumbar distribution without radiation. The patient has good rotational motion of lumbar spine both laterally as well as extension and flexion without significant difficulties. EXTREMITIES: The patient's lower extremities show deep tendon reflexes 1+ in the patellar and tendo calcaneus tendons. Motor exam is strong with 5/5 dorsiflexion, extension, quadriceps and hamstring flexion symmetrical. The patient still has a mild straight leg raise on the left side about 45 degrees, decreased with knee flexion, right side is negative. Peripheral pulses are 1+ posterior tibia. No peripheral edema is noted. Options were discussed with the patient. The patient's old chart was reviewed as her current medication regimen updated. Current review of systems updated today as well. We will proceed with a preauthorization for a second lumbar epidural steroid injection. She still has radicular pain in L4-L5 dermatomal distribution in the left lower extremity, although significantly improved for the first 2 weeks at 70%, now about 50% improvement overall and doing well. The patient will continue with stretching and strengthening exercises on her own. Continue doing daily walking as she has been doing as tolerated. The patient will follow up in approximately 2 weeks and plan on second lumbar epidural steroid injection at that time. NATHAN VALERIO MD DR: SUMMER/jennie JOB#: [id number] / [id number]
== END | disposition home or self-care (01) ==
LOC: PNCL 14:01
PROVIDERS: ATTEND Anesthesiology
DX: M51.16 Intervertebral disc disorders with radiculopathy, lumbar region (principal); M50.10 Cervical disc disorder with radiculopathy, unspecified cervical region; M79.18 Myalgia, other site
CPT/HCPCS: G0463

== ENCOUNTER → 2018-08-30 | Outpatient (CLI) | payer OTHER ==
[~2018-08-30] MED LIST changes: +IOHEXOL 180 MG/ML 10 ML VIAL. ONE; +LEVO75TA5 PO; +methylPREDNISolone ACETATE 40 MG/ML VIAL. ONE; +methylPREDNISolone ACETATE 80 MG/ML VIAL. ONE
--- NOTE | 2018-08-30 20:16 | PAIN ---
DATE OF SERVICE: 08/30/2018 DIAGNOSES: 1. Lumbar radiculopathy with lumbar degenerative disk disease. 2. Cervical radiculopathy with cervical degenerative disk disease. 3. Myofascial pain. 4. Left shoulder joint pain with primary osteoarthritis. HISTORY OF PRESENT ILLNESS: The patient is a 58-year-old female who returns for followup status post lumbar epidural steroid injection x 1. The patient did very well with about 70% improvement after the injection. The patient reports that overall is about 50% following the injection for about 4 weeks, now is about still 50% in the low back, left greater than right lower extremity pain with radiating pain bilaterally in posterior gluteus, posterior lateral thigh, lateral anterior thigh on the left and medial thigh and knee on the left as well. The patient reports it is burning, aching, sharp, shooting, radiating, becoming more constant, more severe; worse with walking, standing, changing positions; better with sitting or lying down; it still awakens her from sleep occasionally, not every night. The patient reports it is 10 on a scale of 10 at its worst, 4 on average, 3 at its least and is 4 today. The patient is doing well with oxycodone. She has been taking this on a chronic basis as well without significant side effects, reducing the pain by about 75% overall just from the medication. The patient reports she was increasing her activity with walking, changing positions, doing household activities with greater ease and comfort after the last injection for about a month or so. The patient reports no new motor or sensory deficits, no new bowel or bladder incontinence or other complaints. PHYSICAL EXAMINATION: VITAL SIGNS: The patient's blood pressure is 129/78, pulse is 84, respirations are 16, temperature is 98.3 degrees Fahrenheit. Height is 5 feet 3 inches, weighs 184 pounds. GENERAL: The patient is awake, alert, oriented, appropriate, very pleasant demeanor. HEENT: Head is normocephalic, atraumatic. Extraocular movements are intact and symmetrical. Oral cavity: Mucous membranes moist and pink. Dentition intact. NECK: Shows anterior throat supple without palpable lymphadenopathy noted. Swallow reflex symmetrical. CHEST: Shows normal with inspection. Breath sounds clear to auscultation bilaterally. HEART: Shows S1, S2 clear. No murmurs auscultated. ABDOMEN: Soft, nontender, nondistended. No palpable organomegaly is noted. No rebound or guarding demonstrated. BACK: Shows spine grossly in the midline. Normal-appearing thoracic kyphosis and some slight flattening of lumbar lordotic curvature. Lumbar paraspinous muscle shows symmetrical on inspection; with palpation, shows some moderate tenderness with low lumbar distribution of paraspinous muscles with palpation, but without radiation, without trigger points or atrophy or hypertrophy. The patient has good rotational motion of lumbar spine, both laterally as well as extension and flexion without significant difficulty. EXTREMITIES: Lower extremities show deep tendon reflexes at 1+ in the patellar and tendo calcaneus tendons. Motor exam is strong with 5/5 dorsiflexion, extension, quadriceps and hamstring flexion and are equal. Peripheral pulses are 1+ posterior tibia. No peripheral edema is noted bilaterally. Options were discussed with the patient. The patient's old chart was reviewed as was current medication regimen updated. Current review of systems was updated today as well. We will proceed with a second in the series of lumbar epidural steroid injection today with fluoroscopic guidance. Risks were again discussed including, but not limited to bleeding, infection, possibility of epidural hematoma and subsequent neurological compromise, dural puncture, headaches, spinal cord and/or nerve damage, side effects of steroid medication and poor results regarding pain control. The patient understands and wished to proceed. The patient to return to clinic in approximately 2 weeks for followup. She was counseled as to return appointment, activity level and side effects to be aware of. DIAGNOSIS: Lumbar radiculopathy with lumbar degenerative disk disease. PROCEDURE: Lumbar epidural steroid injection, translaminar approach L4-L5 level using C-arm fluoroscopic guidance under sterile prep and drape using local anesthetic. MEDICATION INJECTED: A total of 120 mg of Depo-Medrol plus 10 mL of preservative-free normal saline and 2 mL of isovue for contrast. CONDITION AT DISCHARGE: Stable. The patient tolerated the procedure well, had no complications. NATHAN VALERIO MD DR: SUMMER/jennie JOB#: [id number] / [id number]
== END | disposition home or self-care (01) ==
LOC: PNCL 12:56
PROVIDERS: ATTEND Anesthesiology
DX: M51.16 Intervertebral disc disorders with radiculopathy, lumbar region (principal); M19.012 Primary osteoarthritis, left shoulder; M79.18 Myalgia, other site; M50.10 Cervical disc disorder with radiculopathy, unspecified cervical region; Z88.5 Allergy status to narcotic agent; Z88.1 Allergy status to other antibiotic agents; Z88.8 Allergy status to other drugs, medicaments and biological substances
CPT/HCPCS: 62323; J1030; J1040; Q9965

== ENCOUNTER → 2018-11-04 | Outpatient (CLI) | payer OTHER ==
[~2018-11-04] MED LIST changes: +ALBU2.5V8 INH; +BECL10.62 IH; +CITA40TA12 PO; -IOHEXOL 180 MG/ML 10 ML VIAL. ONE; +MIRT15TA90 PO; +PROP80TA PO; -methylPREDNISolone ACETATE 40 MG/ML VIAL. ONE; -methylPREDNISolone ACETATE 80 MG/ML VIAL. ONE
--- NOTE | 2018-11-05 00:22 | PAIN ---
DATE OF SERVICE: 11/04/2018 PROGRESS NOTE FOR PAIN CLINIC: DIAGNOSES: 1. Lumbar radiculopathy with lumbar degenerative disk disease. 2. Cervical radiculopathy with cervical degenerative disk disease. 3. Left shoulder joint pain with osteoarthritis. 4. Myofascial pain. HISTORY OF PRESENT ILLNESS: The patient is a 58-year-old female who returns for followup status post lumbar epidural steroid injections x 2. The patient reports about 50% improvement after last injection in the low back and bilateral lower extremity, slightly more on the left than the right, still painful in the left posterior gluteus, lateral thigh, anterior medial thigh, but much better for several weeks for approximately 5 weeks after the injection. The patient reports the pain is returning now in the low back especially in the left leg with some in the right leg as well as described, but reports it is burning, stabbing, aching across the low back, radiating, constant in the leg, becoming more constant, more severe with walking and standing. Initially, she was walking greater distances, doing activities at home, traveling with much greater ease and comfort, still not awaken her from sleep at night. The patient reports her pain is a 10 on scale of 10 at its worst, is a 5 on average and 5 at its least and is a 5 today. The patient reports she is doing well with her medication regimen. She is taking oxycodone 10 mg and had a good stable regimen of pain relief with the medication as well with about a 75% improvement without side effects. The patient reports no new motor or sensory deficits, no new bowel or bladder incontinence. The patient reports she did have an EMG done in [place], [place] and has had new MRI scan scheduled, but has not been performed yet. PHYSICAL EXAMINATION: VITAL SIGNS: Today, the patient's blood pressure 145/82, pulse 80, respirations 16, temperature is 98.8 degrees Fahrenheit, height is 5 feet 3 inches, weighs 188 pounds. GENERAL: The patient is awake, alert, oriented, appropriate, very pleasant demeanor. HEENT: Head is normocephalic, atraumatic. Extraocular movements are intact and symmetrical. Oral cavity: Mucous membranes moist and pink. Dentition is intact. NECK: Shows anterior throat supple without palpable lymphadenopathy noted. Swallow reflex symmetrical. CHEST: Shows normal on inspection. Breath sounds clear to auscultation bilaterally. HEART: Shows S1, S2 clear. No murmurs auscultated. ABDOMEN: Soft, nontender, nondistended. No palpable organomegaly is noted. No rebound or guarding demonstrated. BACK: Shows spine grossly in the midline. Slight exaggeration of thoracic kyphosis and minor flattening of the cervical lordotic curvature and lumbar lordotic curvature. Lumbar paraspinous muscle shows symmetrical on inspection, on palpation shows some moderate tenderness diffusely, but only diffusely without significant radiation in the lower lumbar distribution only. The patient shows good rotational motion of lumbar spine, both laterally as well as flexion, extension without significant pain reported. EXTREMITIES: Lower extremities show deep tendon reflexes at 1+ in the patellar and tendo calcaneus tendons. Motor exam is strong with 5/5 dorsiflexion, extension, quadriceps and hamstring flexion symmetrical. Peripheral pulses are 1+ posterior tibia. No peripheral edema is noted bilaterally. Options were discussed with the patient. The patient's old chart was reviewed as her current medication regimen updated. Current review of systems updated today as well. We will hold on any further injections at this time as she requires preauthorization for any additional lumbar epidural steroid injection at the L4-L5 level for L4-L5 left-sided radiculopathy. We will refill the patient's oxycodone. The patient has had appropriate K-TRACS reporting as well as appropriate urinalysis to date and we will refill this for 2 months' period oxycodone 10 mg. The patient was given instruction as well as side effects to be aware of with medication. We will follow up in approximately 1 month as scheduled. NATHAN VALERIO MD DR: SUMMER/jennie JOB#: [id number] / [id number]
== END | disposition home or self-care (01) ==
LOC: PNCL 11:24
PROVIDERS: ATTEND Anesthesiology
DX: M51.16 Intervertebral disc disorders with radiculopathy, lumbar region (principal); M50.10 Cervical disc disorder with radiculopathy, unspecified cervical region; M19.012 Primary osteoarthritis, left shoulder; M79.18 Myalgia, other site
CPT/HCPCS: G0463

== ENCOUNTER → 2018-12-29 | Outpatient (CLI) | payer OTHER ==
--- NOTE | 2018-12-30 01:28 | PAIN ---
DATE OF SERVICE: 12/29/2018 PROGRESS NOTE FOR PAIN CLINIC DIAGNOSES: 1. Lumbar radiculopathy with lumbar degenerative disk disease. 2. Cervical radiculopathy with cervical degenerative disk disease. 3. Myofascial pain. 4. Left shoulder joint pain with osteoarthritis. HISTORY OF PRESENT ILLNESS: The patient is a 58-year-old female who returns for followup status post medication management as well as trigger point injections and lumbar epidural steroid injections x 2. The patient reports her last steroid injections did not help significantly and she did not want to repeat those. She is taking oxycodone as well as using Lidoderm patches, which she feels does fairly well, with about a 75% improvement overall with her pain. The patient reports still pain across the low back, into the left hip, left posterior gluteus, posterior lateral thigh and lateral anterior thigh, occasionally on the right side, but mostly on the left. The patient reports it is a 10 on a scale of 10 at its worst, 5 on average, 4 at its least and is a 5 today. The patient reports it is burning, aching, radiating, constant and severe at times in the low back and legs, but again fairly well controlled, where she is able to increase her distance walking, doing household activities and travelling with fairly good comfort with the medication. The patient reports no new motor or sensory deficits, no new bowel or bladder incontinence. PHYSICAL EXAMINATION: VITAL SIGNS: The patient's blood pressure is 139/72, pulse 83, respirations 16 and temperature 98.8 degrees Fahrenheit. Height is 5 feet 3 inches, weight is 187 pounds. GENERAL: The patient is awake, alert, oriented, appropriate, very pleasant demeanor. HEENT EXAMINATION: Shows normocephalic, atraumatic. Extraocular movements are intact and symmetrical. Oral cavity, mucous membranes are moist and pink. Dentition is intact. NECK: Shows anterior throat supple, without palpable lymphadenopathy noted. Swallow reflex is symmetrical. CHEST: Shows normal on inspection. Breath sounds are clear to auscultation bilaterally. HEART: Shows S1, S2 clear. No murmurs auscultated. ABDOMEN: Soft, nontender and nondistended. No palpable organomegaly is noted. No rebound or guarding demonstrated. BACK: Shows spine grossly in the midline. Normal-appearing thoracic kyphosis and some minor flattening of the lumbar lordotic curvature. Lumbar paraspinous muscle shows symmetrical on inspection. On palpation, it shows some moderate tenderness diffusely in the low lumbar distribution, again worse on the left side than the right, but without trigger points and without radiation. The patient has good rotational motion of the lumbar spine, both laterally as well as extension and flexion, without significant difficulty or pain reported. The patient's neck shows good rotational motion as well, both laterally as well as extension and flexion, without significant increase in pain. Posterior cervical paraspinous musculature shows some very mild tenderness diffusely throughout the upper, middle and lower distribution of the paraspinous muscles, also superior medial and lateral trapezius, but diffusely without radiation and essentially equal, right and left. EXTREMITIES: The patient's upper extremities show deep tendon reflexes 2+ in the biceps and triceps tendons. Motor exam is strong with belt splicer strength rated at 5/5 and equal. Lower extremities show deep tendon reflexes 1+ in the patella and tendo calcaneus tendons, very symmetrical. Motor exam is strong with dorsiflexion, extension, quadriceps and hamstring flexion and 5/5 and equal as well. Peripheral pulses are 2+ radial and 1+ posterior tibial. Options were discussed with the patient. The patient's old chart was reviewed as was her current medication regimen updated. Current review of systems updated today as well. We will refill the patient's oxycodone as well as Lidoderm patches, with instructions and side effects to be aware of discussed. The patient has had appropriate K-TRACS reporting as well as appropriate urinalysis to date. We will have the urinalysis drawn today as a routine screening and we will have the patient on a 2-month followup. She was given prescription for 60-day supply with instructions and side effects to be aware of once again discussed. The patient will follow up in approximately 2 months or sooner as necessary. NATHAN VALERIO MD DR: SUMMER/jennie JOB#: [id number] / [id number]
== END | disposition home or self-care (01) ==
LOC: PNCL 12:56
PROVIDERS: ATTEND Anesthesiology
DX: M51.16 Intervertebral disc disorders with radiculopathy, lumbar region (principal); M50.10 Cervical disc disorder with radiculopathy, unspecified cervical region; M19.012 Primary osteoarthritis, left shoulder; M79.18 Myalgia, other site
CPT/HCPCS: G0463

== ENCOUNTER → 2019-02-22 | Outpatient (CLI) | payer OTHER ==
--- NOTE | 2019-02-23 00:41 | PAIN ---
DATE OF SERVICE: 02/22/2019 PROGRESS NOTE FOR PAIN CLINIC DIAGNOSES: 1. Lumbar radiculopathy with lumbar degenerative disk disease. 2. Cervical radiculopathy with cervical degenerative disk disease. 3. Myofascial pain. HISTORY OF PRESENT ILLNESS: The patient is a 58-year-old female who returns for followup status post medication management with oxycodone and Lidoderm patches. The patient reports she is doing quite well with this, has been on very stable regimen, but still some significant pain. The patient reports the pain is reduced by about 75% but still pain in the low back into the left posterior hip and posterior thigh. The patient reports it is a 10 on a scale of 10 at its worst, 5 on average, 5 at its least and is a 5 today. The patient reports it is a burning, aching, cramping, stabbing, radiating, becoming constant, severe with walking and standing, better with sitting or lying down but does awaken her from sleep occasionally. It is not very often. The patient reports no new motor or sensory deficits, no new side effects of the medication, no new bowel or bladder incontinence or other complaints. She is seeing Orthopedics Surgery later today for another evaluation of her left hip as well. PHYSICAL EXAMINATION: VITAL SIGNS: The patient's blood pressure 147/80, pulse 83, respirations 16 and temperature 99.2 degrees Fahrenheit. Weight is 186 pounds. GENERAL: The patient is awake, alert, oriented, appropriate and very pleasant demeanor. HEENT: Head is normocephalic and atraumatic. Extraocular movements are intact and symmetrical. Oral cavity: Mucous membranes moist and pink. Dentition is intact. NECK: Shows anterior throat supple without palpable lymphadenopathy noted. Swallow reflex symmetrical. CHEST: Shows normal with inspection. Breath sounds clear to auscultation bilaterally. HEART: Shows S1 and S2 clear. No murmurs auscultated. ABDOMEN: Soft, nontender and nondistended. No palpable organomegaly is noted. No rebound or guarding demonstrated. BACK: Shows spine grossly in the midline. Lumbar paraspinous muscle shows symmetrical on inspection and palpation shows some moderate tenderness in the posterior superior iliac spine on the left and mildly on the left sacroiliac region but with a prolonged compression, the patient reports the pain decreases, right side is nontender. The patient has good rotational motion of the back, both laterally as well as extension and flexion without increase in pain. EXTREMITIES: Lower extremities show deep tendon reflexes 1+ in the patellar and tendo calcaneus tendons. Motor exam is approximately 4 on a scale of 5 but equal and symmetrical dorsiflexion, extension, quadriceps and hamstring flexion. Javier's maneuver is negative bilaterally as is Gaenslen's maneuver bilaterally. Options were discussed with the patient. The patient's old chart was reviewed as well as her current medication regimen updated as well as current review of systems updated today. We will refill the patient's oxycodone. The patient has been on a very stable regimen with appropriate K-TRACS reporting as well as appropriate urinalysis to date. We waited for 2-month period. The patient was given instruction as well as side effects to be aware of each of the medication and will follow up in approximately 2 months or sooner as necessary. NATHAN VALERIO MD DR: SUMMER/jennie JOB#: [id number] / [id number]
== END | disposition home or self-care (01) ==
LOC: PNCL 13:49
PROVIDERS: ATTEND Anesthesiology
DX: M51.16 Intervertebral disc disorders with radiculopathy, lumbar region (principal); M50.10 Cervical disc disorder with radiculopathy, unspecified cervical region; M79.18 Myalgia, other site
CPT/HCPCS: G0463

== ENCOUNTER → 2019-04-19 | Outpatient (CLI) | payer OTHER ==
--- NOTE | 2019-04-19 23:12 | PAIN ---
DATE OF SERVICE: 04/19/2019 PROGRESS NOTE FOR PAIN CLINIC DIAGNOSES: 1. Lumbar radiculopathy with lumbar degenerative disk disease. 2. Cervical radiculopathy with cervical degenerative disk disease. 3. Myofascial pain. 4. Left shoulder pain with primary osteoarthritis. HISTORY OF PRESENT ILLNESS: The patient is a 58-year-old female who returns for followup status post medication management with both oxycodone and Lidoderm patches. The patient reports she is doing fairly well with this over time, but she has had some increased pain in her neck and shoulders. She is seeing her neurosurgeon in approximately 2 weeks and has a myelogram scheduled prior to that for the cervical spine. The patient reports, otherwise, doing fairly well. Medication is controlling the pain to a moderate extent, about 70-75%. The patient reports still significant pain in the base of neck and shoulders as well as the low back and left hip. Rates a 10 on a scale of 10 at its worst, 6 on average and a 5 at its least and is a 6 today. The patient reports it is aching, burning, radiating, severe, constant at times, worse with activity, standing and walking. It has been disturbing her sleep, occasionally with the neck, but most times, feels better when she lies down with the neck and the back. The patient reports no new motor or sensory deficits, no new changes. PHYSICAL EXAMINATION: VITAL SIGNS: The patient's blood pressure 144/80, pulse 78, respirations 18, temperature is 98.4 degrees Fahrenheit, height is 5 feet 3 inches and weight is 188 pounds. GENERAL: The patient is awake, alert, oriented, appropriate, very pleasant demeanor. HEENT: Head shows normocephalic, atraumatic. Extraocular movements are intact and symmetrical. Oral cavity: Mucous membranes moist and pink. Dentition is intact. NECK: Shows anterior throat supple without palpable lymphadenopathy noted. Swallow reflex symmetrical. CHEST: Shows normal on inspection. Breath sounds are clear to auscultation bilaterally. HEART: Shows S1, S2 clear. No murmurs auscultated. ABDOMEN: Soft, nontender and nondistended. No palpable organomegaly is noted. No rebound or guarding demonstrated. BACK: Shows cervical spine with normal cervical lordotic curvature. Paraspinous muscle shows symmetrical on inspection with some moderate tenderness, but only diffusely throughout the upper, middle and lower distribution of the paraspinous musculature. The patient has good rotational motion of the cervical spine laterally as well as extension and flexion without significant limitation or pain reported. The patient's low back shows some moderate tenderness as well in the paraspinous musculature bilaterally but without significant radiation as well. The patient has good rotational motion of the lumbar spine, both laterally as well as extension and flexion without significant difficulty. EXTREMITIES: The patient's upper extremities show deep tendon reflexes at 2+ in the biceps and triceps tendons. Lower extremities are 1+ in the patellar and tendo-calcaneus tendons. Motor exam is approximately 4 on a scale of 5, but equal dorsiflexion, extension, quadriceps and hamstring flexion. Options were discussed with the patient. The patient's old chart was reviewed as her current medication regimen updated. Current review of systems updated today as well. We discussed some potential interventional techniques such as sacroiliac joint injection on the left. She had some significant pain on the left side more than the right with palpation, but she would like to wait on any of these at this time, is refusing any interventional techniques. We will refill her medication as it seems to help her significantly and she has no significant side effects. She has had appropriate K-TRACS reporting as well as appropriate urinalysis to date and we will refill this for a 2-month period. The patient will follow up with her neurosurgeon as scheduled and return in approximately 2 months or sooner as necessary. The patient was counseled as to activity level as well as medication regimen and side effects to be aware of. NATHAN VALERIO MD DR: SUMMER/jennie JOB#: [id number] / [id number]
== END | disposition home or self-care (01) ==
LOC: PNCL 12:56
PROVIDERS: ATTEND Anesthesiology
DX: M50.10 Cervical disc disorder with radiculopathy, unspecified cervical region (principal); M51.36 Other intervertebral disc degeneration, lumbar region; M19.012 Primary osteoarthritis, left shoulder; M79.18 Myalgia, other site
CPT/HCPCS: G0463

== ENCOUNTER → 2019-06-14 | Outpatient (CLI) | payer OTHER ==
[~2019-06-14] MED LIST changes: +OMEP40CA45 PO; -OMEP40CA5 PO
--- NOTE | 2019-06-14 15:04 | PAIN ---
DATE OF SERVICE: 06/14/2019 PROGRESS NOTE FOR PAIN CLINIC DIAGNOSES: 1. Lumbar radiculopathy with lumbar degenerative disk disease. 2. Cervical radiculopathy with cervical degenerative disk disease. 3. Myofascial pain. 4. Left shoulder joint pain with osteoarthritis. HISTORY OF PRESENT ILLNESS: The patient is a 58-year-old female, who returns for followup status post medication management with both oxycodone and Lidoderm patches. The patient reports she has recently seen a neurosurgeon, Dr. Malave, who is recommending either or both coccygeal injections or piriformis injection. She has some pain in the left hip and low back. The patient reports her tailbone pain is the worst. She is using a donut to sit on. She is taking anti-inflammatories around the clock and the pain is not significantly improved. We discussed that we could do a sacrococcygeal ligament injection, although she has had these in the past without significant improvement. The patient would like to consider this further. The patient reports the pain is in the low back, left hip, posterior gluteus, lateral thigh, rates it as 10 on a scale of 10, its worst over the past week, 4 on average, 4 at its least and is a 4 today. The patient reports it is aching, burning, stabbing, radiating, constant, severe at times, worse with activity, walking or standing. She feels that her low back feels heavy when she is walking, especially when she first gets up from a seated position. The patient reports it awakens her from sleep off and on, but not every night. She reports no new motor or sensory deficits or other complaints. PHYSICAL EXAMINATION: VITAL SIGNS: The patient's blood pressure 120/75, pulse 76, respirations 16, temperature 99.9 degrees Fahrenheit. Weight is 186 pounds. GENERAL: The patient is awake, alert, oriented, appropriate, very pleasant demeanor. HEENT: Shows normocephalic, atraumatic. Extraocular movements are intact and symmetrical. Oral cavity: Mucous membranes are moist and pink. Dentition is intact. NECK: Shows anterior throat supple without palpable lymphadenopathy noted. Swallow reflex symmetrical. CHEST: Shows normal on inspection. Breath sounds are clear to auscultation bilaterally. HEART: Shows S1, S2 clear. No murmurs auscultated. ABDOMEN: Soft, nontender, nondistended. No palpable organomegaly is noted. No rebound or guarding demonstrated. BACK: Shows spine grossly in the midline, slight flattening of the lumbar lordotic curvature. Lumbar paraspinous muscle shows symmetrical on inspection and palpation shows some moderate tenderness diffusely bilaterally going diffusely without significant radiation. The patient has good rotational motion of lumbar spine, both laterally as well as extension and flexion without significant difficulty. EXTREMITIES: The patient's lower extremities show deep tendon reflexes, 1+ in the patellar and tendo calcaneus tendons. Motor exam is strong with 5/5 dorsiflexion, extension, quadriceps and hamstring flexion symmetrical. Peripheral pulses are 1+ posterior tibia. No peripheral edema is noted. The patient's straight leg raising noted to be negative for reproduction of radicular symptoms bilaterally. Gaenslen's and Javier's maneuvers are negative bilaterally as well. Options were discussed with the patient. The patient's old chart was reviewed as her current medication regimen updated. Current review of systems updated today as well. She would like to maintain with medication management at this time, as she has had previous injections in the past without significant improvement. We discussed the potential injection of the sacrococcygeal ligament. She would like to consider this further. Also, we will refill the patient's medication for 2-month prescription. She has had appropriate K-TRACS reporting as well as appropriate urinalysis to date and is reporting about 70% improvement with the medications without side effects. The patient was given instruction as well as side effects to be aware of each of the medications and will follow up in approximately 2 months or sooner if necessary. NATHAN VALERIO MD DR: SUMMER/jennie JOB#: [id number] / [id number]
== END | disposition home or self-care (01) ==
LOC: PNCL 12:55
PROVIDERS: ATTEND Anesthesiology
DX: M51.16 Intervertebral disc disorders with radiculopathy, lumbar region (principal); M50.10 Cervical disc disorder with radiculopathy, unspecified cervical region; M19.012 Primary osteoarthritis, left shoulder; M79.18 Myalgia, other site
CPT/HCPCS: G0463

== ENCOUNTER → 2019-08-09 | Outpatient (CLI) | payer OTHER ==
--- NOTE | 2019-08-10 06:03 | PAIN ---
DATE OF SERVICE: 08/09/2019 PROGRESS NOTE FOR PAIN CLINIC DIAGNOSES: 1. Lumbar radiculopathy with lumbar degenerative disk disease. 2. Cervical radiculopathy with cervical degenerative disk disease. 3. Myofascial pain. HISTORY OF PRESENT ILLNESS: The patient is a 59-year-old female who returns for followup status post medication management with oxycodone. The patient is also using Lidoderm patches. The patient reports doing very well, but on a very stable regimen with about a 75% improvement overall with pain without significant side effects. The patient reports no new motor or sensory deficits. There is still pain across the low back as her main complaint, also base of the neck and shoulders, but in the left side of the low back, is her main complaint, worse with walking, standing, changing positions. The patient reports no recent injuries or accidents. Reports her pain is a 10 on a scale of 10 at its worst over the past week, 5 on average, 5 at its least and is a 10 with increased activity with bending and stooping and walking. The patient reports otherwise she is doing fairly well, sleeping better at night, awakens her occasionally, but not every night. PHYSICAL EXAMINATION: VITAL SIGNS: Today, the patient's blood pressure is 135/75, pulse is 74, respirations are 18, temperature 98.5 degrees Fahrenheit, height is 5 feet 3 inches, weight is 183 pounds. GENERAL: The patient is awake, alert, oriented, appropriate, very pleasant demeanor. HEENT: Shows normocephalic, atraumatic. Extraocular movements are intact and symmetrical. Oral cavity shows mucous membranes moist and pink. Dentition is intact. NECK: Shows anterior throat supple without palpable lymphadenopathy noted. Swallow reflex symmetrical. CHEST: Shows normal on inspection. Breath sounds are clear bilaterally. HEART: Shows S1, S2 clear. No murmurs auscultated. ABDOMEN: Soft, nontender, nondistended. BACK: Shows spine grossly in the midline, slightly exaggerated thoracic kyphosis, some minor flattening of lumbar lordotic curvature. Lumbar paraspinous muscle shows symmetrical, with palpation shows some moderate tenderness in the low lumbar distribution, slightly more on the left than the right, but present bilaterally without significant trigger points or radiation. The patient has good rotation motion of the lumbar spine both laterally as well as extension and flexion without significant difficulty. EXTREMITIES: The patient's lower extremities show deep tendon reflexes at 1+ in the patellar and tendo calcaneus tendons. Motor exam is strong with 5/5 dorsiflexion and extension. Quadriceps and hamstring flexion symmetrical. Peripheral pulses are 1+ posterior tibia. No peripheral edema is noted bilaterally. Options were discussed with the patient. The patient's old chart was reviewed as her current medication regimen updated. Current review of systems updated today as well. We will refill the patient's oxycodone as well as Lidoderm patches. The patient has had appropriate K-TRACS reporting as well as appropriate urinalysis to date. We will also have a UA today for routine screening. The patient will follow up in approximately 2 months or sooner as necessary. The patient was given instruction as well as side effects to be aware of each of her medications. NATHAN VALERIO MD DR: SUMMER/jennie JOB#: [id number] / [id number]
== END | disposition home or self-care (01) ==
LOC: PNCL 12:57
PROVIDERS: ATTEND Anesthesiology
DX: M51.16 Intervertebral disc disorders with radiculopathy, lumbar region (principal); M50.10 Cervical disc disorder with radiculopathy, unspecified cervical region
CPT/HCPCS: G0463

== ENCOUNTER → 2019-10-04 | Outpatient (CLI) | payer OTHER ==
[~2019-10-04] MED LIST changes: +LEVO100T5 PO
--- NOTE | 2019-10-04 15:02 | PAIN ---
DATE OF SERVICE: 10/04/2019 PROGRESS NOTE FOR PAIN CLINIC DIAGNOSES: 1. Lumbar radiculopathy with lumbar degenerative disk disease. 2. Cervical radiculopathy with cervical degenerative disk disease. 3. Myofascial pain. 4. Left shoulder joint pain with osteoarthritis. HISTORY OF PRESENT ILLNESS: The patient is a 59-year-old female who returns for followup status post lumbar epidural steroid injections as well as trigger point injections and medication management. The patient has been taking oxycodone and using Lidoderm patches for the left shoulder, primarily as well as the base of the neck and low back. The patient reports that these are helping to a moderate extend, the medication is doing well with about 75% improvement overall and she has been on very stable regimen of oxycodone 10 mg up to 4 daily. The patient reports no side effects with the medications, no constipation, no itchiness or drowsiness and is pleased with her progress with this so far. The patient is still complaining of low back pain and left lower extremity pain, but only moderately. The patient reports the pain is well controlled with the medications, has worst pain over the past week and is a 10 on a scale of 10, average of 5 and least is a 4 and is a 5 today. The patient reports no new motor or sensory deficits, better with sitting or lying down, does not awaken her from sleep at night. She has been sleeping through the night, having some burning pain in the low back as well as aching quality, sometimes stabbing in the left hip radiating with walking and standing can be unbearable and constant, but sitting and lying down generally relieves the pain fairly significantly. The patient reports no new motor or sensory deficits and again no side effects. PHYSICAL EXAMINATION: VITAL SIGNS: The patient's blood pressure is 146/90, pulse 75, respirations are 18, temperature 98.2 degrees Fahrenheit, height is 5 feet 3 inches, weighs 180 pounds. GENERAL: The patient is awake, alert, oriented, appropriate, very pleasant demeanor. HEENT: Shows normocephalic, atraumatic. Extraocular movements are intact and symmetrical. Oral cavity: Mucous membranes moist and pink. Dentition is intact. NECK: Shows anterior throat supple. CHEST: Shows normal on inspection. Breath sounds clear bilaterally. HEART: Shows S1, S2 clear. No murmurs auscultated. ABDOMEN: Soft, nontender, nondistended. BACK: Shows spine grossly in the midline. Slight exaggeration of thoracic kyphosis, normal cervical lordotic curvature and some flattening of lumbar lordotic curvature is noted. Cervical paraspinous muscle shows symmetrical on inspection, on palpation shows some moderate tenderness diffusely bilaterally going diffusely without significant radiation. The patient does show good rotational motion of cervical spine, both laterally as well as extension and flexion without significant increase in pain. The patient's lumbar spine shows lumbar paraspinous muscle is symmetrical with only some moderate tenderness with palpation in the low lumbar distribution bilaterally, slightly more on the left than the right, but present bilaterally without atrophy or hypertrophy, no trigger points, no radiation of pain. The patient has good rotational motion of lumbar spine, both laterally as well as extension and flexion without significant increase in pain as well. EXTREMITIES: The patient's upper extremities show deep tendon reflexes 2+ in the biceps and triceps tendons. Motor exam is strong with neonatologist strength rated at 5/5 with bicep and tricep flexion. Lower extremities show deep tendon reflexes 1+ in the patellar and tendo calcaneus tendons. Motor exam is strong with 5/5 dorsiflexion, extension, quadriceps and hamstring flexion. Peripheral pulses are 2+ radial, 1+ posterior tibia. No peripheral edema is noted in the upper or lower extremities. Options were discussed with the patient. The patient's old chart was reviewed as her current medication regimen updated. Current review of systems updated today as well. We will refill the patient's oxycodone for 2-month prescription. The patient has had appropriate K-TRACS reporting as well as appropriate urinalysis to date. The patient was given instruction as well as side effects to be aware of with all of her medications including Lidoderm patches and will be refilled for 2-month period. The patient will return to the clinic in approximately 2 months or sooner if necessary. NATHAN VALERIO MD DR: SUMMER/jennie JOB#: [id number] / [id number]
== END | disposition home or self-care (01) ==
LOC: PNCL 13:15
PROVIDERS: ATTEND Anesthesiology
DX: M51.16 Intervertebral disc disorders with radiculopathy, lumbar region (principal); M50.10 Cervical disc disorder with radiculopathy, unspecified cervical region; M79.18 Myalgia, other site; M19.012 Primary osteoarthritis, left shoulder
CPT/HCPCS: G0463

== ENCOUNTER → 2019-11-29 | Outpatient (CLI) | payer OTHER ==
--- NOTE | 2019-11-29 15:10 | PAIN ---
DATE OF SERVICE: 11/29/2019 PROGRESS NOTE FOR PAIN CLINIC DIAGNOSES: 1. Lumbar radiculopathy with lumbar degenerative disk disease. 2. Cervical radiculopathy with cervical degenerative disk disease. 3. Left shoulder joint pain with primary osteoarthritis. HISTORY OF PRESENT ILLNESS: The patient is a 59-year-old female who returns for followup status post medication management with oxycodone 10 mg and Lidoderm patches. The patient reports she is doing very well with this current medication regimen. There is still some pain in the low back as her main complaint and into the left lower extremity to some extent. The patient reports she is doing fairly well with medications without significant side effects. The patient reports about a 70% improvement overall, even with increased activity. The patient has been somewhat sedentary lately, but reports she is sleeping fairly well at night. Pain awakens her once every 6 hours and she can easily reposition and get back to sleep. The patient reports no new motor or sensory deficits, no new bowel or bladder incontinence. The patient rates her pain as a 10 on a scale of 10 at its worst over the past week, 5 on average, 5 at its least and is a 5 today. The patient reports it is aching and burning across the low back, some in the neck and shoulders, but mostly in the back itself and into the left hip to some extent. The patient reports it can be constant with activity, standing and walking. 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 The patient has no significant claudication symptoms, however, at this time. PHYSICAL EXAMINATION: VITAL SIGNS: The patient's blood pressure is 130/80, pulse 76, respirations 18, temperature 98.3 degrees Fahrenheit, height 5 feet 3 inches, weighs 177 pounds. GENERAL: The patient is awake, alert, oriented, appropriate, very pleasant demeanor. HEENT: Shows normocephalic, atraumatic. Extraocular movements are intact and symmetrical. Oral cavity: Mucous membranes are moist and pink. Dentition is intact. NECK: Shows anterior throat supple without palpable lymphadenopathy noted. Swallow reflex symmetrical. CHEST: Shows normal on inspection. Breath sounds are clear bilaterally. HEART: Shows S1, S2 clear. No murmurs auscultated. ABDOMEN: Soft, nontender, nondistended. No palpable organomegaly is noted. No rebound or guarding demonstrated. BACK: Shows spine grossly in the midline. Normal appearing thoracic kyphosis and some minor flattening of lumbar lordotic curvature. Lumbar paraspinous muscle shows symmetrical on inspection, with palpation shows some moderate tenderness diffusely, but only in the low lumbar distribution without radiation. Cervical paraspinous muscle shows symmetrical as well with some minor tenderness in the inferior and middle aspect of the cervical paraspinous muscles, but without radiation as well. The patient shows good rotational motion of the cervical spine both laterally as well as extension and flexion without significant difficulty. Lumbar spine shows good rotation right and left lateral at 10 degrees as well as extension and flexion without increase in pain. EXTREMITIES: Upper extremities show deep tendon reflexes 2+ in the biceps and triceps tendons. Motor exam is strong with trimming caser strength rated at 5/5 and equal. Lower extremities show deep tendon reflexes 1+ in the patellar and tendo calcaneus tendons. Motor exam is strong with dorsiflexion, extension, quadriceps and hamstring flexion rated at 5/5 and equal as well. Peripheral pulses are 2+ radial, 1+ posterior tibial. No peripheral edema bilaterally. Options were discussed with the patient. The patient's old chart was reviewed as her current medication regimen updated. Current review of systems updated today as well. We will refill the patient's oxycodone as well as Lidoderm patches. The patient was given instruction as well as side effects to be aware of each of the medications. She has had appropriate K-TRACS report as well as appropriate urinalysis to date and we will make this a 2-month prescription refill. The patient will return to the clinic in approximately 2 months or sooner as necessary. She was given instructions as well as side effects to be aware of each of the medications. We will follow up as scheduled. NATHAN VALERIO MD DR: SUMMER/jennie JOB#: [id number] / [id number]
== END | disposition home or self-care (01) ==
LOC: PNCL 12:51
PROVIDERS: ATTEND Anesthesiology
DX: M51.16 Intervertebral disc disorders with radiculopathy, lumbar region (principal); M19.012 Primary osteoarthritis, left shoulder; M50.10 Cervical disc disorder with radiculopathy, unspecified cervical region
CPT/HCPCS: G0463

== ENCOUNTER → 2020-01-24 | Outpatient (CLI) | payer OTHER ==
--- NOTE | 2020-01-24 15:26 | PAIN ---
DATE OF SERVICE: 01/24/2020 PROGRESS NOTE FOR PAIN CLINIC DIAGNOSES: 1. Lumbar radiculopathy with lumbar degenerative disk disease. 2. Cervical radiculopathy with cervical degenerative disk disease. 3. Myofascial pain. 4. Left shoulder joint pain with osteoarthritis. HISTORY OF PRESENT ILLNESS: The patient is a 59-year-old female who returns for followup status post medication management with both oxycodone and Lidoderm patches. The patient reports she is doing very well with this stable regimen with about 60%-75% improvement overall with medications without specific side effects. The patient reports still her main complaint is pain in the low back and into the left lower extremity, which comes and goes. We had discussed repeat epidural steroid injections with the patient on her last visit. She has not done well with these for long-term in the past and reviewed those as well today. The patient reports her pain is burning and stabbing, sharp, radiating, constant in the low back, some in the left lower extremity as well in the posterior gluteus, posterolateral thigh. The patient reports the pain is a 10 on a scale of 10 at its worst over the past week, 5 on average and 4 at its least and is a 4 today. The patient reports it is much worse with activity, walking, standing, changing positions, better with sitting or lying down, but awakens her from sleep, but only about once a night and usually not more frequent than every 6 hours. The patient reports no new motor or sensory deficits, no bowel or bladder incontinence. PHYSICAL EXAMINATION: VITAL SIGNS: The patient's blood pressure is 120/71, pulse 74, respirations 18, temperature 98.8 degrees Fahrenheit, height is 5 feet 3 inches, weighs 177 pounds. GENERAL: The patient is awake, alert, oriented, appropriate, very pleasant demeanor. HEENT: Shows normocephalic, atraumatic. Extraocular movements are intact and symmetrical. Oral cavity: Mucous membranes moist and pink. Dentition is intact. NECK: Shows anterior throat supple without palpable lymphadenopathy noted. Swallow reflex symmetrical. CHEST: Shows normal on inspection. Breath sounds are clear to auscultation bilaterally. HEART: Shows S1, S2 clear. No murmurs auscultated. ABDOMEN: Soft, nontender, nondistended. No palpable organomegaly is noted. There is no rebound or guarding demonstrated. BACK: Shows spine grossly in the midline. Normal appearing thoracic kyphosis and lumbar lordotic curvature is slightly flattened. Lumbar paraspinous muscle shows symmetrical on inspection, on palpation shows some moderate tenderness diffusely throughout the upper, middle and lower distribution of paraspinous muscles bilaterally, but good rotational motion both laterally greater than 10 degrees right and left as well as extension greater than 10 degrees, forward flexion 45 degrees without significant limitation or pain reported. The patient's neck shows good rotational motion as well. Posterior cervical paraspinous muscle shows symmetrical with some mild tenderness in the inferior aspect of the cervical paraspinous musculature and into the superior medial trapezius bilaterally, but only diffusely without trigger points or radiation. EXTREMITIES: The patient's extremities show upper extremity with deep tendon reflexes 2+ in the biceps and triceps tendons. Motor exam is strong with coil winder hand strength rated at 5/5. Lower extremities show 1+ in the tendo calcaneus and patellar tendons bilaterally. Motor exam is 5/5 with dorsiflexion, extension and symmetrical. Peripheral pulses are 2+ radial, 1+ posterior tibia. No peripheral edema is noted to upper or lower extremities. Options were discussed with the patient. The patient's old chart was reviewed as her current medication regimen updated. Current review of systems updated today as well. We will refill the patient's medications with oxycodone and Lidoderm patches, which she is using mostly on her low back and sometimes on the neck and shoulders as well with instructions and side effects to be aware of each of these medications. The patient had appropriate K-TRACS reporting as well as appropriate urinalysis to date. We will make this a 2-month refill. The patient was counseled as to activity level as well as medication side effects to be aware of, continue with stretching and strengthening exercises specially for the low back and neck and shoulders, heat and massage applications as well and I encouraged the patient to exercise, mainly walking outdoors as much as tolerated as well. The patient will follow up as scheduled or sooner as necessary. NATHAN VALERIO MD DR: SUMMER/jennie JOB#: [id number] / [id number]
== END ==
LOC: PNCL 13:02
PROVIDERS: ATTEND Anesthesiology
DX: M50.10 Cervical disc disorder with radiculopathy, unspecified cervical region (principal); M79.18 Myalgia, other site; M25.512 Pain in left shoulder; M19.012 Primary osteoarthritis, left shoulder
CPT/HCPCS: G0463

== ENCOUNTER → 2020-03-20 | Outpatient (CLI) | payer OTHER ==
--- NOTE | 2020-03-20 14:06 | PAIN ---
DATE OF SERVICE: PROGRESS NOTE FOR PAIN CLINIC DIAGNOSES: 1. Lumbar radiculopathy with lumbar degenerative disk disease. 2. Cervical radiculopathy with cervical degenerative disk disease. 3. Myofascial pain. 4. Left shoulder joint pain with osteoarthritis. SUBJECTIVE: The patient is a 59-year-old female who returns for followup status post medication management after previous lumbar epidural steroid injections and cervical epidural steroid injections, all with minimal longevity and decreasing pain. The patient is on oxycodone 10 mg up to 4 times daily. The patient reports still pain is significant, especially in the low back and left lower extremity as well as in the base of the neck and shoulders bilaterally. The patient reports it is worse with activity, standing, walking, changing positions, keeps her awake from sleep at night, awakens her about every 6 hours. The patient rates her pain as a 10 on a scale of 10 at its worse over the past week, 7 on average, 6 at its least and is a 7 today. The patient reports it is aching, burning, stabbing, radiating, becoming more constant. The patient is contemplating traveling to the [facility] to see about alternative treatments for the pain. We discussed her lack of significant response to previous interventional techniques as well as lessened effectiveness with her oxycodone, which she rates at about 50% improvement now or previously with 60-70%, but still has significant side effects. The patient reports not interested in any further interventional techniques. We did discuss decreasing the oxycodone slowly with a gradual taper; however, she would like to get another opinion before doing this as well. PHYSICAL EXAMINATION: VITAL SIGNS: The patient's blood pressure 131/81, pulse 74, respirations 20, temperature 98.7 degrees Fahrenheit. Height is 5 feet 3 inches, weight is 172 pounds. GENERAL: The patient is awake, alert, oriented, appropriate, very pleasant demeanor. HEENT: Shows normocephalic, atraumatic. Extraocular movements are intact and symmetrical. Oral cavity: Mucous membranes moist and pink. Dentition is intact. NECK: Shows anterior throat supple without palpable lymphadenopathy noted. Swallow reflex symmetrical. CHEST: Shows normal on inspection. Breath sounds are clear bilaterally. HEART: Shows S1, S2 clear. No murmurs auscultated. ABDOMEN: Soft, nontender, nondistended. No palpable organomegaly is noted. No rebound or guarding demonstrated. BACK: Shows spine grossly in the midline, slight exaggerated thoracic kyphosis and minor flattening of lumbar lordotic curvature. Lumbar paraspinous muscle shows symmetrical on inspection, on palpation shows some moderate tenderness diffusely bilaterally going diffusely without significant radiation. The patient's cervical paraspinous muscle shows symmetrical on inspection, with palpation shows some moderate tenderness in the inferior aspect only of the paraspinous muscles and superior medial trapezius bilaterally as well, but without radiation. The patient has full rotational motion of cervical spine, both laterally as well as extension and flexion without significant increase in pain. EXTREMITIES: The patient's upper extremities show deep tendon reflexes 2+ in biceps, triceps tendons. Motor exam is strong with manager of internal strength rated at 5/5 as is bicep and tricep flexion. Peripheral pulses are 2+ radial. No peripheral edema is noted. Lower extremities show deep tendon reflexes 1+ in the patellar and tendo calcaneus tendons. Motor exam is strong with 5/5 dorsiflexion, extension, quadriceps and hamstring flexion symmetrical. Peripheral pulses are 1+ without edema as well. Options were discussed with the patient. The patient's old chart was reviewed. Her current medication regimen updated. Current review of systems updated today as well. We will start with MRI scans of both the cervical and lumbar spines. The patient has significant radicular pain in the bilateral upper extremities and the left greater than right lower extremity. Once these are obtained, we will have these reviewed as well. The patient will be given a refill of her medications today, oxycodone 10 mg. The patient has had appropriate K-TRACS reporting as well as appropriate urinalysis to date. We will have urinalysis done today as well for routine screening. The patient will return to clinic and was given a 60-day period with the medication. We will have her follow up after MRI scans are obtained. Once these are improved for worsening pain again in a radicular pattern both cervical and left lumbar. The patient was given instruction as well as side effects to be aware of the medications and will follow up as scheduled. NATHAN VALERIO MD DR: SUMMER/jennie JOB#: [id number] / [id number]
== END | disposition home or self-care (01) ==
LOC: PNCL 12:58
PROVIDERS: ATTEND Anesthesiology
DX: M51.16 Intervertebral disc disorders with radiculopathy, lumbar region (principal); M50.10 Cervical disc disorder with radiculopathy, unspecified cervical region; M79.18 Myalgia, other site; M19.012 Primary osteoarthritis, left shoulder; Z88.8 Allergy status to other drugs, medicaments and biological substances; Z79.899 Other long term (current) drug therapy
CPT/HCPCS: 99212; G0463

== ENCOUNTER → 2020-05-03 | Outpatient (CLI) | payer OTHER ==
--- NOTE | 2020-05-03 16:00 | KCIC ---
EXAM: Lumbar spine MRI without contrast. HISTORY: Lower back pain. TECHNIQUE: Multiplanar, multisequence magnetic resonance imaging of the lumbar spine was performed without contrast. COMPARISON: CT myelogram dated 04/06/2019 and MRI dated 06/29/2016. FINDINGS: There is mild lumbar hyperlordosis. There is minimal retrolisthesis of L2 on L3 and L3 on L4. There is minimal grade 1 anterolisthesis of L5 on S1, measuring 2 mm. There is degenerative endplate remodeling and disc space narrowing predominantly at L3-L4. There are few endplate Schmorl's nodes. There is a benign osseous hemangioma within T11. There is no suspicious osseous lesion. There is no fracture. The conus terminates at L1. At L1-L2, there is no stenosis. At L2-L3, there is a disc bulge and endplate remodeling. There is minimal retrolisthesis. There is mild left foraminal stenosis. At L3-L4, there is a left foraminal disc protrusion and annular tear superimposed on a disc bulge and endplate remodeling. There is mild bilateral facet arthropathy. There is minimal retrolisthesis. There is mild bilateral foraminal stenosis. There is mild central canal stenosis. At L4-L5, there is a left foraminal disc protrusion superimposed on a disc bulge and endplate remodeling. There is mild bilateral facet arthropathy. There is mild left greater than right foraminal stenosis. There is mild central canal stenosis. At L5-S1, there is moderate right and severe left facet arthropathy. There is no stenosis. IMPRESSION: Multilevel degenerative change involving the lumbar spine, described in detail above. This results in mild left foraminal stenosis at L2-L3, mild bilateral foraminal and central canal stenosis at L3-L4, and mild left greater than right foraminal and central canal stenosis at L4-L5. These findings are very similar compared to the prior studies, allowing for differences in imaging technique. Electronically signed by: Anjelica Hartmann MD (05/03/2020 3:57 PM) [id number]
== END ==
LOC: KCIC MRI 14:34
PROVIDERS: ATTEND Anesthesiology
DX: M48.061 Spinal stenosis, lumbar region without neurogenic claudication (principal); M47.27 Other spondylosis with radiculopathy, lumbosacral region
CPT/HCPCS: 72148

== ENCOUNTER → 2020-05-15 | Outpatient (CLI) | payer OTHER ==
--- NOTE | 2020-05-15 14:48 | PDOC ---
Progress Note - Pain Clinic Date of Service: DOS: DATE: 05/15/20 TIME: 14:41 Diagnosis: Dx: Lumbar radiculopathy with lumbar degenerative disc disease Cervical radiculopathy with cervical degenerative disc disease Myofascial pain History or Present Illness: HPI: 59-year-old female returns follow-up status post medication management oxycodone 10 mg. Patient is also here uppercase lumbar epidural steroid injections in the past but without significant long-term benefit. We discussed on her last visit pain in the low back and left lower extremity and did obtain an MRI scan lumbar spine showing multilevel degenerative change involving the lumbar spine with mild left foraminal stenosis at L2-L3 mild bilateral foraminal and central canal stenosis L3-4 and mild left greater than right foraminal and central canal stenosis at L4-5 findings are very similar compared to the prior studies of 2016. Patient continues to report significant pain in the low back left lower extremity posterior gluteus posterior lateral thigh lateral anterior thigh posterior calf as well as lateral and medial calf patient ports is a 10 on scale 10 is worse over the past week 5 on average 5 to fleece is a 5 today. Patient reports no new motor or sensory deficits with her medication she is not having any significant side effects does report about a 50 to 60% improvement with the medication overall and is well-tolerated is been on very stable regimen. Patient has had appropriate K traxs reporting as well as appropriate urinalyses to date as well. Physical Exam: VS: Blood pressure is 121/77 pulse 79 respirations 18 temperature 98.3 F height 5 foot 3 inches weight is 172 pounds PE: PHYSICAL EXAMINATION: GENERAL: The patient is awake, alert, oriented, appropriate, very pleasant demeanor HEENT: Shows normocephalic, atraumatic. Extraocular movements are intact and symmetrical. Oral cavity: Mucous membranes moist and pink. NECK: Shows anterior throat supple without palpable lymphadenopathy noted. Swallow reflex symmetrical. CHEST: Shows normal on inspection. Breath sounds are clear bilaterally, no rales rhonchi or wheezes auscultated. HEART: Shows S1, S2 clear. No murmurs auscultated. ABDOMEN: Soft, nontender, nondistended. No palpable organomegaly is noted. No rebound or guarding demonstrated. BACK: Shows spine grossly in the midline. Normal-appearing cervical lordotic curvature, neck shows good rotation of motion both laterally greater than 45 degrees closer to 90 degrees both right and left lateral as well as full extension full forward flexion without significant increase in pain. There is slightly increased thoracic kyphosis, some minor flattening of the lumbar lordotic curvature. Lumbar paraspinous muscles show symmetrical on inspection, on palpation shows some moderate tenderness diffusely throughout the upper, middle and lower distribution of the paraspinous muscles bilaterally and also into the lower thoracic paraspinous musculature, firm and tender, but without specific trigger points, without radiation of pain. The patient has good rotational motion of the lumbar spine, both laterally as well as extension and flexion without significant difficulty. No tenderness over the spinous processes, sacrum or sacroiliac regions. EXTREMITIES: Lower extremities show deep tendon reflexes 1+ in the patellar and tendo calcaneus tendons. Motor exam is 5 on a scale of 5 with right do rsiflexion, extension, quadriceps and hamstring flexion and 5/5 on the left. Peripheral pulses are 1 posterior tibial. No peripheral edema is noted bilaterally. Lower extremities are warm and dry to touch, equal in color and appearance. The patient is able to stand, walks with a normal-appearing gait does not appear to favor the right or left lower extremity significantly not use any assistive device such as canes or walkers to ambulate. SKIN: Shows warm and dry, good turgor. No edema. No sores, rashes or bruising throughout. Procedure: Procedure: Options discussed with the patient. Patient's old chart was reviewed as her current medication regimen updated current review of systems updated today as well. We will refill patient's medication oxycodone 10 mg up to 4 tablets daily with instructions side effects be aware of discussed patient has had appropriate K trax reports as well as appropriate urinalyses to date and will be will make this a 2-month refill. We also discussed potential of weaning down on patient's medications she is apprehensive to consider this at this time but we did discuss in great detail today the process of how this might be accomplished in the future. Patient will give this some additional consideration and will follow-up in approximate 2 months or sooner as necessary. Medication Injected: Med Injected: None Condition at Discharge: Condition at Discharge: Condition at discharge is stable NATHAN VALERIO MD May 15, 2020 14:48
== END | disposition home or self-care (01) ==
LOC: PNCL 13:36
PROVIDERS: ATTEND Anesthesiology
DX: M51.16 Intervertebral disc disorders with radiculopathy, lumbar region (principal); M50.10 Cervical disc disorder with radiculopathy, unspecified cervical region; M79.18 Myalgia, other site; M48.061 Spinal stenosis, lumbar region without neurogenic claudication; Z88.8 Allergy status to other drugs, medicaments and biological substances; Z79.899 Other long term (current) drug therapy
CPT/HCPCS: 99212; G0463

== ENCOUNTER → 2020-07-10 | Outpatient (CLI) | payer OTHER ==
[~2020-07-10] MED LIST changes: +MIRT-36 PO; -MIRT15TA PO
--- NOTE | 2020-07-10 13:39 | PDOC ---
Progress Note - Pain Clinic Date of Service: DOS: DATE: 07/10/20 TIME: 13:31 Diagnosis: Dx: Lumbar radiculopathy with lumbar degenerative disc disease Cervical radiculopathy with cervical degenerative disc disease Myofascial pain Left shoulder joint pain with primary osteoarthritis History or Present Illness: HPI: 60-year-old female returns follow-up status post medication management oxycodone 10 mg. Patient reports he is doing very well is been a very stable regimen with good pain relief at approximately 70% overall without any significant side effects. Patient ports also pain the low back left lower extremity as it was previously but doing fairly well with the medication regimen without any new findings or complaints concerns. Patient reports pain is a 10 on scale 10 is worse with past week 6 on average 5 its least is a 6 today describes pain is burning and stabbing the low back left lower extremity sharp some of the perineum as well but no loss of bowel or bladder continence patient ports pain is radiating can be constant severe with activity better with sitting or laying down wakes her from sleep occasionally but not every night but can about every 6 hours on some nights. Patient reports again no side effects with the medication no new motor or sensory deficits no bowel or bladder incontinence. Physical Exam: VS: Pressure is 124/72 pulse 74 respirations 18 temperature is 98.1 F height is 5 feet 3 inches weight is 167 pounds PE: PHYSICAL EXAMINATION: GENERAL: The patient is awake, alert, oriented, appropriate, very pleasant demeanor HEENT: Shows normocephalic, atraumatic. Extraocular movements are intact and symmetrical. Oral cavity: Dentition is intact. NECK: Shows anterior throat supple without palpable lymphadenopathy noted. Swallow reflex symmetrical. CHEST: Shows normal on inspection. Breath sounds are clear bilaterally, no rales or wheezes. HEART: Shows S1, S2 clear. No murmurs auscultated. ABDOMEN: Soft, nontender, nondistended, obese. No palpable organomegaly is noted. No rebound or guarding demonstrated. BACK: Shows spine grossly in the midline. Normal-appearing cervical lordotic curvature. There is slightly increased thoracic kyphosis, some minor flattening of the lumbar lordotic curvature. Lumbar paraspinous muscles show symmetrical on inspection, on palpation shows some moderate tenderness diffusely throughout the upper, middle and lower distribution of the paraspinous muscles bilaterally without specific trigger points, without radiation of pain. The patient has good rotational motion of the lumbar spine, both laterally as well as extension and flexion without significant difficulty. No tenderness over the spinous processes, sacrum or sacroiliac regions. EXTREMITIES: Lower extremities show deep tendon reflexes 2 in the patellar and tendo calcaneus tendons. Motor exam is 5 on a scale of 5 with right dorsiflexion, extension, quadriceps and hamstring flexion and 5/5 on the left. Peripheral pulses are 1+ posterior tibial. No peripheral edema is noted bilaterally. Lower extremities are warm and dry to touch, equal in color and appearance. SKIN: Shows warm and dry, good turgor. No edema. No sores, rashes or bruising throughout. Procedure: Procedure: Options were discussed with the patient. Patient's old chart was reviewed as her current medication regimen updated current review of systems updated today as well. We will refill patient's oxycodone as patient has been on very stable regimen has had appropriate K tract reporting as well as appropriate urinalyses to date. We will make this a 2-month prescription patient is given instructions will side effects aware with each of the medications and will follow-up in approximately 2 months or sooner if necessary. Medication Injected: Med Injected: None Condition at Discharge: Condition at Discharge: Condition at discharge is stable. NATHAN VALERIO MD Jul 10, 2020 13:39
== END | disposition home or self-care (01) ==
LOC: PNCL 12:59
PROVIDERS: ATTEND Anesthesiology
DX: M51.16 Intervertebral disc disorders with radiculopathy, lumbar region (principal); M50.10 Cervical disc disorder with radiculopathy, unspecified cervical region; M19.012 Primary osteoarthritis, left shoulder; Z79.899 Other long term (current) drug therapy; Z88.1 Allergy status to other antibiotic agents; Z88.8 Allergy status to other drugs, medicaments and biological substances; Z88.6 Allergy status to analgesic agent
CPT/HCPCS: 99212; G0463

== ENCOUNTER → 2020-09-04 | Outpatient (CLI) | payer OTHER ==
[~2020-09-04] MED LIST changes: +METO-247 PO; +MIRT-8 PO; -MIRT30TA3 PO; -OMEP40CA45 PO; +OMEP40CA7 PO
--- NOTE | 2020-09-04 13:44 | PDOC ---
Progress Note - Pain Clinic Date of Service: DOS: DATE: 09/04/20 TIME: 13:41 Diagnosis: Dx: Lumbar radiculopathy with lumbar degenerative disc disease Cervical radiculopathy with cervical degenerative disc disease Myofascial pain Left shoulder joint pain with osteoarthritis History or Present Illness: HPI: 60-year-old female returns to follow-up status post medication management with oxycodone. Patient reports doing very well with this in a very stable regimen of the medication without any side effects patient reports it does allow her to do most daily activities within reason she cannot control her activity to level where she knows would not exacerbate the pain significantly mostly in the low back and left lower extremity. Patient reports no side effects with the medicat ion has been on very stable regimen for extended period of time now. Patient reports her pain is in the low back rating to the left lower extremity worse with walking standing better with sitting or laying down generally does not awaken her from sleep at night. Patient reports is a 10 on scale 10 is worse over the past week 6 on average 5 its least is a 6 today. Patient scribes pain is burning and stabbing in the low back sharp and shooting radiating the left lower extremity mostly the posterior lateral thigh can be constant with activity and can be severe at times but patient is able to control this with her medication fairly well by her report. Patient reports no new motor or sensory deficits no new bowel or bladder incontinence or other complaints. Physical Exam: VS: Blood pressure is 134/81 pulse 81 respirations 16 temperature is 98.7 F height is 5 feet 3 inches weight is 1 6 9 pounds PE: PHYSICAL EXAMINATION: GENERAL: The patient is awake, alert, oriented, appropriate, very pleasant demeanor HEENT: Shows normocephalic, atraumatic. Extraocular movements are intact. NECK: Shows anterior throat supple without palpable lymphadenopathy noted. Swallow reflex symmetrical. CHEST: Shows normal on inspection. Breath sounds are clear bilaterally no rales or rhonchi. HEART: Shows S1, S2 clear. No murmurs auscultated. ABDOMEN: Soft, nontender, nondistended, obese. No palpable organomegaly is noted. BACK: Shows spine grossly in the midline. Normal-appearing cervical lordotic curvature. There is slightly increased thoracic kyphosis, some minor flattening of the lumbar lordotic curvature. Lumbar paraspinous muscles show symmetrical on inspection, on palpation shows some moderate tenderness diffusely throughout the upper, middle and lower distribution of the paraspinous muscles without specific trigger points, without radiation of pain. The patient has good rotational motion of the lumbar spine, both laterally as well as extension and flexion without significant difficulty. EXTREMITIES: Lower extremities show deep tendon reflexes 2+ in the patellar and tendo calcaneus tendons. Motor exam is 5 on a scale of 5 with right dorsiflexion, extension, quadriceps and hamstring flexion and 5/5 on the left. Peripheral pulses are 1+ posterior tibial. No peripheral edema is noted bilaterally. Lower extremities are warm and dry to touch, equal in color and appearance. SKIN: Shows warm and dry, good turgor. No edema. No sores, rashes or bruising throughout. Procedure: Procedure: Options were discussed with the patient. Patient chart reviews her current me dication regimen updated current review of systems updated today as well. We will proceed with refill of patient's medication oxycodone 10 mg for 2-month period. Patient has had appropriate K tracks report as well as appropriate urinalyses to date and we will make this a 2-month refill. Patient given instructions well side effects beware of the medication and [facility] or sooner as necessary. Medication Injected: Med Injected: None Condition at Discharge: Condition at Discharge: Condition at discharge is stable. NATHAN VALERIO MD Sep 04, 2020 13:44
== END | disposition home or self-care (01) ==
LOC: PNCL 13:06
PROVIDERS: ATTEND Anesthesiology
DX: M51.16 Intervertebral disc disorders with radiculopathy, lumbar region (principal); M50.10 Cervical disc disorder with radiculopathy, unspecified cervical region; M79.10 Myalgia, unspecified site; M19.012 Primary osteoarthritis, left shoulder; Z79.899 Other long term (current) drug therapy; Z88.1 Allergy status to other antibiotic agents; Z88.8 Allergy status to other drugs, medicaments and biological substances
CPT/HCPCS: 99212; G0463

== ENCOUNTER → 2020-10-30 | Outpatient (CLI) | payer OTHER ==
[~2020-10-30] MED LIST changes: -MIRT-8 PO; +MIRT30TA3 PO; +OMEP40CA45 PO; -OMEP40CA7 PO
--- NOTE | 2020-10-30 13:52 | PDOC ---
Progress Note - Pain Clinic Date of Service: DOS: DATE: 10/30/20 TIME: 13:48 Diagnosis: Dx: Lumbar radiculopathy with lumbar degenerative disc disease Cervical radiculopathy with cervical degenerative disc disease Myofascial pain Left shoulder joint pain with osteoarthritis History or Present Illness: HPI: 60-year-old female returns for follow-up status post medication management with oxycodone 10 mg. Patient has been on very stable regimen for extended period of time with the medication is doing very well with this reports about a 75% improvement overall with the medications without any significant side effects. Patient reports she is maintaining hydration is not having any headaches not having any nausea palpitations dysphoria euphoria or constipation. Reports still some significant pain in the low back and more to the left lower extremity but only worse with walking and standing changing positions or doing any repetitive bending or stooping which she avoids most times. Patient still doing some stretching exercises and strengthening daily and reports generally she sleeps fairly well at night generally awakens her if it does at all maybe once every 6 hours at the most. She can usually change sleeping position and get back to sleep. Patient reports no new motor or sensory deficits no new bowel or bladder incontinence. Physical Exam: VS: Blood pressure is 126/73 pulse 69 respirations are 18.5 F height 5 feet 3 inches weight is 166 pounds PE: PHYSICAL EXAMINATION: GENERAL: The patient is awake, alert, oriented, appropriate, very pleasant demeanor HEENT: Shows normocephalic, atraumatic. Extraocular movements are intact and symmetrical. Oral cavity: Mucous membranes moist and pink. Dentition is intact. NECK: Shows anterior throat supple without palpable lymphadenopathy noted. Swallow reflex symmetrical. CHEST: Shows normal on inspection. Breath sounds are clear bilaterally, no rales or rhonchi. HEART: Shows S1, S2 clear. No murmurs auscultated. ABDOMEN: Soft, nontender, nondistended, obese. No palpable organomegaly is noted. BACK: Shows spine grossly in the midline. Normal-appearing cervical lordotic curvature. There is slightly increased thoracic kyphosis, some minor flattening of the lumbar lordotic curvature. Lumbar paraspinous muscles show symmetrical on inspection, on palpation shows some moderate tenderness diffusely throughout the upper, middle and lower distribution of the paraspinous muscles without specific trigger points, without radiation of pain. The patient has good rotational motion of the lumbar spine, both laterally as well as extension and flexion without significant difficulty. EXTREMITIES: Lower extremities show deep tendon reflexes 1+ in the patellar and tendo calcaneus tendons. Motor exam is 5 on a scale of 5 with right dorsiflexion, extension, quadriceps and hamstring flexion and 5/5 on the left. Peripheral pulses are 1+ posterior tibial. No peripheral edema is noted bilaterally. SKIN: Shows warm and dry, good turgor. No edema. No sores, rashes or bruising throughout. Procedure: Procedure: Options were discussed with the patient. Patient chart reviews her current medication regimen updated current review of systems updated today as well. We will refill patient's medication oxycodone 10 mg that she has been on very stable regimen. Patient has had appropriate K tracks reports as well as appropriate urinalyses to date. Patient will be given 2-month refill with instructions side effects aware of the medications discussed. Patient will return to the clinic in approximate 2 months or sooner if necessary. Medication Injected: Med Injected: None Condition at Discharge: Condition at Discharge: Patient discharge is stable. NATHAN VALERIO MD Oct 30, 2020 13:52
== END | disposition home or self-care (01) ==
LOC: PNCL 13:04
PROVIDERS: ATTEND Anesthesiology
DX: M51.16 Intervertebral disc disorders with radiculopathy, lumbar region (principal); M50.10 Cervical disc disorder with radiculopathy, unspecified cervical region; M79.18 Myalgia, other site; M19.012 Primary osteoarthritis, left shoulder; Z79.899 Other long term (current) drug therapy; Z88.1 Allergy status to other antibiotic agents; Z88.8 Allergy status to other drugs, medicaments and biological substances
CPT/HCPCS: 99212; G0463

== ENCOUNTER → 2020-12-25 | Outpatient (CLI) | payer OTHER ==
--- NOTE | 2020-12-25 13:37 | PDOC ---
Progress Note - Pain Clinic Date of Service: DOS: DATE: 12/25/20 TIME: 13:32 Diagnosis: Dx: Lumbar radiculopathy with lumbar degenerative disc disease Cervical radiculopathy with cervical Myofascial pain Left shoulder joint pain with osteoarthritis History or Present Illness: HPI: 60-year-old female returns to follow-up status post medication management as well as lumbar epidural steroid injections. Patient reports that the injections were not helpful and we had not revisited them recently although he did have an MRI scan done April 2020 showing some significant foraminal disc protrusions at L3-4 and L4-5. Patient reports still has significant pain in the low back and into the inferior aspect of the sacrum with sitting. Patient reports pain is a 9 on scale 10 is worse over the past week 6 on average 6 its least is a 6 today. Patient reports medication oxycodone is helpful by about 60 to 70% and without any side effects. Patient reports occasionally wakes her from sleep most nights she sleeps fairly well. We had discussed other interventional techniques with the patient in the past including lumbar facet injections however she was not interested in pursuing these as she did not have any success with the epidural steroid injections and did not wish to try any further i nterventional techniques. Physical Exam: VS: Blood pressure is 126/72 pulse 67 respirations 18 temperature 98.3 F height is 5 feet 5 inches weight is 161 pounds PE: PHYSICAL EXAMINATION: GENERAL: The patient is awake, alert, oriented, appropriate, very pleasant demeanor HEENT: Shows normocephalic, atraumatic. Extraocular movements are intact and symmetrical. Oral cavity: Mucous membranes moist and pink. Dentition is intact. NECK: Shows anterior throat supple without palpable lymphadenopathy noted. Swallow reflex symmetrical. CHEST: Shows normal on inspection. Breath sounds are clear bilaterally. HEART: Shows S1, S2 clear. No murmurs auscultated. ABDOMEN: Soft, nontender, nondistended, obese. No palpable organomegaly is noted. No rebound or guarding demonstrated. BACK: Shows spine grossly in the midline. Normal-appearing cervical lordotic curvature. There is increased thoracic kyphosis, some flattening of the lumbar lordotic curvature. Lumbar paraspinous muscles show symmetrical on inspection, on palpation shows some moderate tenderness diffusely throughout the upper, middle and lower distribution of the paraspinous muscles without specific trigger points, without radiation of pain. The patient has good rotational motion of the lumbar spine, both laterally as well as extension and flexion without significant difficulty. Patient has mild tenderness over the inferior sacrum but not over the coccyx over the sacrococcygeal junction. EXTREMITIES: Lower extremities show deep tendon reflexes 1+ in the patellar and tendo calcaneus tendons. Motor exam is 5 on a scale of 5 with right dorsiflexion, extension, quadriceps and hamstring flexion and 5/5 on the left. Peripheral pulses are 1+ posterior tibial. No peripheral edema is noted bilaterally. Lower extremities are warm and dry. SKIN: Shows warm and dry, good turgor. No edema. No sores, rashes or bruising throughout. Procedure: Procedure: Options were discussed with the patient. Patient chart reviews her current medication regimen updated current review of systems updated today as well. We will refill patient's medication oxycodone 10 mg, for 2-month period. Patient has had appropriate K tracks report as well as appropriate urinalyses to date and was given instructions well side effects aware with medications. Patient will follow up in approximate 2 months or sooner as necessary. We discussed in detail facet injections which may be helpful with the patient's low back axial pain, patient wishes to consider this and will follow up as scheduled. Medication Injected: Med Injected: None Condition at Discharge: Condition at Discharge: Condition at discharge stable. NATHAN VALERIO MD December 25, 2020 13:37
== END | disposition home or self-care (01) ==
LOC: PNCL 12:56
PROVIDERS: ATTEND Anesthesiology
DX: M51.16 Intervertebral disc disorders with radiculopathy, lumbar region (principal); M79.18 Myalgia, other site; M19.012 Primary osteoarthritis, left shoulder; Z79.899 Other long term (current) drug therapy; Z88.1 Allergy status to other antibiotic agents; Z88.2 Allergy status to sulfonamides; Z88.6 Allergy status to analgesic agent; Z88.8 Allergy status to other drugs, medicaments and biological substances
CPT/HCPCS: 99212; G0463

== ENCOUNTER → 2021-02-19 | Outpatient (CLI) | payer OTHER ==
[~2021-02-19] MED LIST changes: +MIRT-8 PO; -MIRT30TA3 PO; -OMEP40CA45 PO; +OMEP40CA7 PO
--- NOTE | 2021-02-19 13:32 | PDOC ---
Progress Note - Pain Clinic Date of Service: DOS: DATE: 02/19/21 TIME: 13:28 Diagnosis: Dx: Lumbar radiculopathy with lumbar degenerative disease and lumbar spondylosis Cervical radiculopathy cervical degenerative disease Myofascial pain Left shoulder joint pain with osteoarthritis History or Present Illness: HPI: 60-year-old female returns for follow-up status post medication management with oxycodone and Lidoderm patches. Patient reports doing fairly well with this but still significant pain in the low back itself patient is having a evaluation at a new spine surgeon in approximately 1 month and is looking forward to this assessment. Patient continues to claim pain low back bilaterally sometimes in the lower extremities mostly in the back itself patient part is aching and burning radiating can be constant severe with walking standing better with sitting or laying down but still bothering her from sleep at night about once every 6 hours patient reports her pain is a 9 on scale 10 is worse over the past week 6 on average 5 its least is a 6 today. Patient reports no new motor or sensory deficits no new bowel or bladder incontinence or other complaints. Patient reports no side effects with her medication and is reporting about a 60 to 70% improvement with the medications currently. Physical Exam: VS: Blood pressure is 107/63 pulse 75 respirations 18 temperature 98.7 F height 5 feet 5 inches weight 161 pounds PE: PHYSICAL EXAMINATION: GENERAL: The patient is awake, alert, oriented, appropriate, very pleasant in demeanor HEENT: Shows normocephalic, atraumatic. Extraocular movements are intact and symmetrical. Oral cavity: Mucous membranes moist and pink. Dentition is intact. NECK: Shows anterior throat supple without palpable lymphadenopathy noted. Swallow reflex symmetrical. CHEST: Shows normal on inspection. Breath sounds are clear bilaterally, distant but no rales or rhonchi. HEART: Shows S1, S2 clear. No murmurs auscultated. ABDOMEN: Soft, nontender, nondistended, obese. No palpable organomegaly is noted. No rebound or guarding demonstrated. BACK: Shows spine grossly in the midline. Normal-appearing cervical lordotic curvature. There is increased thoracic kyphosis, some flattening of the lumbar lordotic curvature. Lumbar paraspinous muscles show symmetrical on inspection, on palpation shows some moderate tenderness diffusely throughout the upper, middle and lower distribution of the paraspinous muscles without specific trigger points, without radiation of pain. The patient has good rotational motion of the lumbar spine, both laterally as well as extension and flexion without significant difficulty. EXTREMITIES: Lower extremities show deep tendon reflexes 1+ in the patellar and tendo calcaneus tendons. Motor exam is 5 on a scale of 5 with right dorsiflexion, extension, quadriceps and hamstring flexion and 5/5 on the left. Peripheral pulses are 1+ posterior tibial. No peripheral edema is noted bilaterally. Lower extremities are warm and dry. SKIN: Shows warm and dry, good turgor. No edema. No sores, rashes or bruising throughout. Procedure: Procedure: Options were discussed with the patient. Patient's old chart reviews her current medication regimen updated current review of systems updated today as well. Refill patient's medication as patient had appropriate K tracks reporting as well as appropriate urinalyses to date for a 2-month period. She was given instructions well side effects aware of each of the medications and will follow up in approximate 2 months or sooner as necessary. We again discussed potential facet medial branch blocks patient like to consider this and is waiting to see her surgical evaluation coming up as scheduled. Medication Injected: Med Injected: None Condition at Discharge: Condition at Discharge: Condition at discharge is stable. NATHAN VALERIO MD Feb 19, 2021 13:32
== END | disposition home or self-care (01) ==
LOC: PNCL 12:57
PROVIDERS: ATTEND Anesthesiology
DX: M51.16 Intervertebral disc disorders with radiculopathy, lumbar region (principal); M47.26 Other spondylosis with radiculopathy, lumbar region; M50.10 Cervical disc disorder with radiculopathy, unspecified cervical region; M79.18 Myalgia, other site; M19.012 Primary osteoarthritis, left shoulder; Z79.899 Other long term (current) drug therapy; Z88.8 Allergy status to other drugs, medicaments and biological substances; Z88.6 Allergy status to analgesic agent
CPT/HCPCS: 99212; G0463

== ENCOUNTER → 2021-03-25 | Outpatient (CLI) | payer OTHER ==
--- NOTE | 2021-03-25 15:50 | KCIC ---
EXAM: CT CHEST WITHOUT CONTRAST (LDCT LUNG CANCER SCREENING). HISTORY: Lung cancer screening. Cigarette smoking history. TECHNIQUE: CT of the chest was performed without intravenous contrast using a low-dose lung screening protocol. Findings analysis is based on ACR Lung-RADS v1.1. *One or more of the following individual ized dose reduction techniques were utilized for this examination: 1. Automated exposure control. 2. Adjustment of the mA and/or kV according to patient size. 3. Use of iterative reconstruction technique. COMPARISON: 01/16/2012. FINDINGS: The heart is normal in size. There is calcified atherosclerotic plaque involving the aorta and coronary arteries. No pathologically enlarged lymph node is seen. There are prominent central pul monary arteries suggesting a component of pulmonary artery hypertension. There is no pneumothorax or pleural effusion. There is a 4 mm pleural-based nodule within the anterior right middle lobe. There i s right middle lobe and lingular linear atelectasis or scarring. There is mild emphysema. There is no infiltrate. There is no acute finding involving the upper abdomen or osseous structures. There are d egenerative changes involving the spine. There is partial visualization of cervical spinal fusion ins trumentation. IMPRESSION: 1. 4 mm pleural-based nodule within the right middle lobe. Lung RADS category 2: Follow-up in one yea r is recommended. 2. Mild pulmonary emphysema with and right middle lobe and lingular pleural parenchymal scarring or a telectasis. Electronically signed by: Anjelica Hartmann MD (03/25/2021 3:47 PM) [id number]
--- NOTE | 2021-03-25 16:17 | KCIC ---
Bilateral digital screening mammograms: Reason for examination: Routine screening. Comparison is made to previous study dated 04/16/2015. Interpretation is made with the benefit of CAD. The skin and nipples show no abnormalities. No abnormal lymph nodes are seen. The breast parenchyma i s predominantly fatty. (Breast density: Category A.) There are small nodules consistent with intramam joao lymph nodes at the 2:00 B and 5:30 B positions of the left breast which are stable. There are no new dominant masses, suspicious calcifications or architectural distortions. Impression: No evidence of malignancy. Recommend routine screening. BI-RADS Category 2: Benign. "Our facility is accredited by the [employer] Mammography Program." This patient's information has been entered into a reminder system for the patient to be notified wit h the results of her examination and a target date for the next mammogram. Electronically signed by: Marti Ortiz MD (03/25/2021 4:14 PM) [id number]
== END ==
LOC: KCIC MAMMO 14:44
PROVIDERS: ATTEND Nurse Practitioner Family
DX: Z12.31 Encounter for screening mammogram for malignant neoplasm of breast (principal); Z12.2 Encounter for screening for malignant neoplasm of respiratory organs; J43.9 Emphysema, unspecified; F17.210 Nicotine dependence, cigarettes, uncomplicated; I70.0 Atherosclerosis of aorta; I25.10 Atherosclerotic heart disease of native coronary artery without angina pectoris
CPT/HCPCS: 71271; 77067

== ENCOUNTER → 2021-04-16 | Outpatient (CLI) | payer OTHER ==
[~2021-04-16] MED LIST changes: +OXYC10TA PO
--- NOTE | 2021-04-16 13:38 | PDOC ---
Progress Note - Pain Clinic Date of Service: DOS: DATE: 04/16/21 TIME: 13:34 Diagnosis: Dx: Lumbar radiculopathy with lumbar degenerative disease lumbar spondylosis Cervical radiculopathy with cervical degenerative disc disease Myofascial pain Left shoulder joint pain with osteoarthritis History or Present Illness: HPI: 60-year-old female returns in follow-up status post medication management with oxycodone 10 mg. Patient reports doing very well with this in a very stable regimen reports that her pain is fairly well controlled by about 65 to 70% most days. Patient reports pain in the low back and the bilateral lower extremities as previously also some mild myofascial pain in the mid upper back but her main complaint is low back pain patient reports it is burning and aching radiating at times across the back constant can be severe occasionally to the lower extremities as well patient reports is worse with activity but she can usually gauge how much activity she is doing to keep her symptoms at a minimum. Patient reports her pain is a 10 on scale 10 is worse over the past week 8 on average 8 its least is 8 today. Patient reports no bowel or bladder incontinence no side effects with her medication report is better with sitting or lying down worse with walking standing changing positions generally not awaken her from sleep at night. Physical Exam: VS: Blood pressure is 116/69 pulse 74 respirations 18 temperature 99.1 F height 5 feet 5 inches weight 159 pounds PE: PHYSICAL EXAMINATION: GENERAL: The patient is awake, alert, oriented, appropriate, very pleasant in demeanor HEENT: Shows normocephalic, atraumatic. Extraocular movements are intact and symmetrical. Oral cavity: Mucous membranes moist and pink. Dentition is i ntact. NECK: Shows anterior throat supple without palpable lymphadenopathy noted. Swallow reflex symmetrical. CHEST: Shows normal on inspection. Breath sounds are clear bilaterally, no rales rhonchi or wheezes auscultated. HEART: Shows S1, S2 clear. No murmurs auscultated. ABDOMEN: Soft, nontender, nondistended, obese. No palpable organomegaly is noted. BACK: Shows spine grossly in the midline. Normal-appearing cervical lordotic curvature. There is slightly increased thoracic kyphosis, some minor flattening of the lumbar lordotic curvature. Lumbar paraspinous muscles show symmetrical on inspection, on palpation shows some moderate tenderness diffusely throughout the upper, middle and lower distribution of the paraspinous muscles without specific trigger points, without radiation of pain. The patient has good rotational motion of the lumbar spine, both laterally as well as extension and flexion with some moderate tenderness with extension but not with forward flexion but moderate pain with right and left lateral rotation greater than 10 degrees. No tenderness over the spinous processes, sacrum or sacroiliac regions. EXTREMITIES: Lower extremities show deep tendon reflexes 1+ in the patellar and tendo calcaneus tendons. Motor exam is 5 on a scale of 5 with right dorsiflexion, extension, quadriceps and hamstring flexion and 5/5 on the left. Peripheral pulses are 1+ posterior tibial. No peripheral edema is noted bilaterally. Lower extremities are warm and dry to touch, equal in color and appearance. SKIN: Shows warm and dry, good turgor. No edema. No sores, rashes or bruising throughout. Procedure: Procedure: Options were discussed with patient. Patient's old chart was reviewed as her current medication regimen updated current review of systems updated today as well. We will refill patient's oxycodone 10 mg via electronic prescription today. Patient has had appropriate K tracks report as well as appropriate urinalyses to date. Patient was given instructions well side effects beware with the medication will follow up in approximately 1 month with telemedicine visit at that time. Medication Injected: Med Injected: None Condition at Discharge: Condition at Discharge: Condition at discharge is stable. NATHAN VALERIO MD Apr 16, 2021 13:37
== END | disposition home or self-care (01) ==
LOC: PNCL 12:55
PROVIDERS: ATTEND Anesthesiology
DX: M51.16 Intervertebral disc disorders with radiculopathy, lumbar region (principal); M47.26 Other spondylosis with radiculopathy, lumbar region; M50.10 Cervical disc disorder with radiculopathy, unspecified cervical region; M79.18 Myalgia, other site; M19.012 Primary osteoarthritis, left shoulder; Z79.899 Other long term (current) drug therapy; Z88.1 Allergy status to other antibiotic agents; Z88.8 Allergy status to other drugs, medicaments and biological substances
CPT/HCPCS: 99212; G0463

== ENCOUNTER → 2021-05-15 | Outpatient (CLI) | payer OTHER ==
--- NOTE | 2021-05-15 15:40 | PDOC ---
Progress Note - Pain Clinic Date of Service: DOS: DATE: 05/15/21 TIME: 15:37 Diagnosis: Dx: Lumbar radiculopathy with lumbar degenerative disease lumbar spondylosis Cervical radiculopathy with cervical degenerative disc disease Myofascial pain Left shoulder joint pain with osteoarthritis History or Present Illness: HPI: Telemedicine visit today with patient with identification with full date of bi rth as well as full name, total time spent: 12 minutes 60-year-old female with telemedicine visit today requesting refill medication for oxycodone as she is done very well with this is been a very stable regimen with the medications patient reports no side effects with medications still with significant pain in the neck shoulders upper back mid back and low back as well as lower extremities and multiple muscular complaints but overall doing well with about a 70% improvement with the medications and without significant side effects. Patient has had appropriate K tracks portables appropriate urinalyses to date as well. We will refill patient's medication via electronic prescription patient was given instructions well side effects aware of with the medication will follow up in approximate 4 weeks as scheduled. Physical Exam: PE: NATHAN VALERIO MD May 15, 2021 15:39
== END | disposition home or self-care (01) ==
LOC: PNCL 14:53
PROVIDERS: ATTEND Anesthesiology
DX: M51.16 Intervertebral disc disorders with radiculopathy, lumbar region (principal); M47.26 Other spondylosis with radiculopathy, lumbar region; M50.10 Cervical disc disorder with radiculopathy, unspecified cervical region; M79.18 Myalgia, other site; M19.012 Primary osteoarthritis, left shoulder; Z79.899 Other long term (current) drug therapy; Z88.6 Allergy status to analgesic agent; Z88.8 Allergy status to other drugs, medicaments and biological substances
CPT/HCPCS: G0463

== ENCOUNTER → 2021-05-16 | Outpatient (CLI) | payer OTHER ==
--- NOTE | 2021-05-16 16:43 | KCIC ---
EXAMINATION: Magnetic resonance imaging (MRI) of the lumbar spine without contrast 05/16/2021 3:35 PM HISTORY: Low back pain. TECHNIQUE: Multiplanar multi-weighted MRI of the lumbar spine was performed without intravenous contr ast using the standard lumbar spine protocol. Contrast information: None administered. COMPARISON: None available. FINDINGS: There is 2 mm retrolisthesis of L1 on L2, L2 on L3 and L3 on L4. Minimal anterolisthesis of L5 on S1. Mild edema involving the left superior L5 facet. Superior endplate Schmorl's node identified at L2 w ithout significant height loss or edema. There are no compression fractures. The conus medullaris te rminates at the level of L1. The distal spinal cord signal intensity is normal. There is disc desicc ation from T12-L1 through L4-L5. Limited views of the abdomen and pelvis show no soft tissue abnormal ity. The aorta is normal. L1-L2: The disc is normal in configuration. There is no facet arthropathy. There is no neuroforaminal stenosis. There is no spinal canal stenosis. L2-L3: Mild disc bulge. No significant facet arthropathy. No spinal canal stenosis. Mild neural nelson inal stenosis. L3-L4: Mild circumferential disc bulge. Mild left facet arthropathy. Moderate left and mild right yasemin roforaminal stenosis. Mild spinal canal stenosis, exacerbated by epidural lipomatosis. L4-L5: Mild disc bulge. Mild to moderate facet arthropathy. No neuroforaminal or spinal canal stenosi s. L5-S1: The disc is normal in configuration. There is no facet arthropathy. There is no neuroforaminal stenosis. There is no spinal canal stenosis. IMPRESSION: Mild degenerative changes of the lumbar spine as described in detail above. Electronically signed by: Cherie Herrera MD (05/16/2021 4:41 PM) [id number]
== END ==
LOC: KCIC MRI 15:18
PROVIDERS: ATTEND Nurse Practitioner Family
DX: M47.816 Spondylosis without myelopathy or radiculopathy, lumbar region (principal); M48.061 Spinal stenosis, lumbar region without neurogenic claudication; M48.8X6 Other specified spondylopathies, lumbar region; M51.26 Other intervertebral disc displacement, lumbar region; M43.16 Spondylolisthesis, lumbar region
CPT/HCPCS: 72148

== ENCOUNTER → 2021-06-11 | Outpatient (CLI) | payer OTHER ==
--- NOTE | 2021-06-11 13:40 | PDOC ---
Progress Note - Pain Clinic Date of Service: DOS: DATE: 06/11/21 TIME: 13:37 Diagnosis: Dx: Lumbar to colopathy with lumbar degenerative disease and lumbar spondylosis Cervical radiculopathy with cervical degenerative disc disease Myofascial pain Left shoulder joint pain with osteoarthritis History or Present Illness: HPI: 60-year-old female returns for follow-up status post medication management with oxycodone 10 mg. Patient reports he is doing very well with this on very stable regimen reports that her pain is fairly well controlled to about a 70% level most times patient reports with increased activity the pain is increased but she is aware of the activities to avoid to exacerbate this but overall most days. Patient reports that it wakes her from sleep about once every 6 hours but generally she can reposition to get back to sleep patient reports the pain is a 10 on scale 10 is worse over the past week 6 on average 6 its least and is a 6 today. Patient describes the pain is aching and burning in the low back mid back and into the tailbone as well as into the left shoulder also some pain in the lower extremities this is radiating can be constant and severe with extended activity. Patient reports no loss of motor function no bowel or bladder incontinence. Physical Exam: VS: Blood pressure is 116/64 pulse 67 respirations 18 temperature 99.0 F height 5 feet 5 inches weight is 162 pounds PE: PHYSICAL EXAMINATION: GENERAL: The patient is awake, alert, oriented, appropriate, very pleasant in demeanor HEENT: Shows normocephalic, atraumatic. Extraocular movements are intact and symmetrical. Oral cavity: Mucous membranes moist and pink. Dentition is intact. NECK: Shows anterior throat supple without palpable lymphadenopathy noted. Swallow reflex symmetrical. CHEST: Shows normal on inspection. Breath sounds are clear bilaterally, no rales rhonchi wheezes auscultated. HEART: Shows S1, S2 clear. No murmurs auscultated. ABDOMEN: Soft, nontender, nondistended, obese. No palpable organomegaly is noted. BACK: Shows spine grossly in the midline. Normal-appearing cervical lordotic curvature. There is slightly increased thoracic kyphosis, some minor flattening of the lumbar lordotic curvature. Lumbar paraspinous muscles show symmetrical on inspection, on palpation shows some moderate tenderness diffusely throughout the upper, middle and lower distribution of the paraspinous muscles without specific trigger points, without radiation of pain. The patient has good rotational motion of the lumbar spine, both laterally as well as extension and flexion without significant difficulty. EXTREMITIES: Lower extremities show deep tendon reflexes 1+ in the patellar and tendo calcaneus tendons. Motor exam is 5 on a scale of 5 with right dorsiflexion, extension, quadriceps and hamstring flexion and 5/5 on the left. Peripheral pulses are 1+ posterior tibial. No peripheral edema is noted bilaterally. Lower extremities are warm and dry. SKIN: Shows warm and dry, good turgor. No edema. No sores, rashes or bruising throughout. Procedure: Procedure: Options were discussed with the patient. Patient chart reviews her current medication regimen updated current review of systems updated today as well. We will refill patient's oxycodone 10 mg with instructions and effects to beware of discussed with the medication. Patient has had appropriate K tracks report as well as appropriate urinalyses to date and we will make this a 1 month refill for the prescription. Medication Injected: Med Injected: None Condition at Discharge: Condition at Discharge: Condition at discharge is stable. NATHAN VALERIO MD Jun 11, 2021 13:40
== END | disposition home or self-care (01) ==
LOC: PNCL 12:58
PROVIDERS: ATTEND Anesthesiology
DX: M51.16 Intervertebral disc disorders with radiculopathy, lumbar region (principal); M47.26 Other spondylosis with radiculopathy, lumbar region; M50.10 Cervical disc disorder with radiculopathy, unspecified cervical region; M79.18 Myalgia, other site; M19.012 Primary osteoarthritis, left shoulder; Z79.899 Other long term (current) drug therapy; Z88.6 Allergy status to analgesic agent; Z88.8 Allergy status to other drugs, medicaments and biological substances
CPT/HCPCS: 99212; G0463

== ENCOUNTER → 2021-07-09 | Outpatient (CLI) | payer OTHER ==
[~2021-07-09] MED LIST changes: +CYCL10TA19 PO; -CYCL10TA2 PO
--- NOTE | 2021-07-09 16:00 | PDOC ---
Progress Note - Pain Clinic Date of Service: DOS: DATE: 07/09/21 TIME: 15:58 Diagnosis: Dx: Lumbar radiculopathy with lumbar degenerative disease and lumbar spondylosis Cervical radiculopathy with cervical degenerative disc disease Myofascial pain Left shoulder joint pain with osteoarthritis History or Present Illness: HPI: Telemedicine visit today with patient's identification with full date of as well as full name, total time spent 11 minutes. 60-year-old female via telemedicine visit today requesting refill for oxycodone 10 mg. Patient has been on very stable regimen and is doing very well with this reports still significant pain reduction with the medication by about 70 to 75% patient reports no side effects with medication. Patient has had appropriate K tracks report as well as appropriate urinalyses to date as well. Patient reports some increased pain in the base the neck and shoulders especially on the left side with repetitive motion she has been doing some decorating at home and rearranging some items at the home but keeps her physical activity and check fairly well as she knows her limitations in regard to the pain level with acti vity. Patient reports no new motor or sensory deficits no new bowel or bladder incontinence or other complaints. We will electronically prescribe patient's medication with instructions side effects aware of discussed patient will follow up in approximate 4 weeks as scheduled. Physical Exam: PE: NATHAN VALERIO MD Jul 09, 2021 16:00
== END | disposition home or self-care (01) ==
LOC: PNCL 15:10
PROVIDERS: ATTEND Anesthesiology
DX: M51.16 Intervertebral disc disorders with radiculopathy, lumbar region (principal); M47.26 Other spondylosis with radiculopathy, lumbar region; M50.10 Cervical disc disorder with radiculopathy, unspecified cervical region; M79.18 Myalgia, other site; M19.012 Primary osteoarthritis, left shoulder; Z79.899 Other long term (current) drug therapy; Z88.8 Allergy status to other drugs, medicaments and biological substances
CPT/HCPCS: 99212; G0463

== ENCOUNTER → 2021-08-06 | Outpatient (CLI) | payer OTHER ==
--- NOTE | 2021-08-06 14:33 | PDOC ---
Progress Note - Pain Clinic Date of Service: DOS: DATE: 08/06/21 TIME: 14:30 Diagnosis: Dx: Lumbar radiculopathy with lumbar degenerative disease and lumbar spondylosis lumbar radiculopathy with lumbar degenerative disease lumbar spondylosis Cervical radiculopathy with cervical degenerative disc disease Myofascial pain Left shoulder joint pain with osteoarthritis History or Present Illness: HPI: 61-year-old female returns for follow-up status post medication management with oxycodone 10 mg patient reports doing very well is been on very stable regimen with the medication reports about a 70 to 75% improvement in the low back pain with the medication patient reports no side effects with the medication except for occasional constipation which she treats with increased hydration and [id number] laxatives patient reports the pain is a 9 on scale 10 is worse over the past week 7 on average 7 its least is a 7 today. Patient reports is in the low back primarily some radiation the posterior gluteus and thighs but mostly in the low back patient describes it as burning and radiating can be constant severe at times worse with standing and walking and changing positions. Patient reports generally not awaken her from sleep at night but if it does not need for more frequent than every 6 hours or so at the most. Patient reports no bowel or bladder incontinence no side effects with medications once again and patient has had appropriate K tracks report as well as appropriate urinalyses as well to date. Physical Exam: VS: Blood pressure is 121/68 pulse 73 respirations 18 temperature 99.1 F height 5 feet 2 inches weight is 164 pounds PE: PHYSICAL EXAMINATION: GENERAL: The patient is awake, alert, oriented, appropriate, very pleasant in demeanor HEENT: Shows normocephalic, atraumatic. Extraocular movements are intact and symmetrical. Oral cavity: Mucous membranes moist and pink. Dentition is intact. NECK: Shows anterior throat supple without palpable lymphadenopathy noted. Swallow reflex symmetrical. CHEST: Shows normal on inspection. Breath sounds are clear bilaterally, distant but no rales or rhonchi. HEART: Shows S1, S2 clear. No murmurs auscultated. ABDOMEN: Soft, nontender, nondistended. No palpable organomegaly is noted. BACK: Shows spine grossly in the midline. Normal-appearing cervical lordotic curvature. There is slightly increased thoracic kyphosis, some flattening of the lumbar lordotic curvature. Lumbar paraspinous muscles show symmetrical on inspection, on palpation shows some moderate tenderness diffusely throughout the upper, middle and lower distribution of the paraspinous muscles without specific trigger points, without radiation of pain. The patient has good rotational motion of the lumbar spine, both laterally as well as extension and flexion without significant difficulty. No tenderness over the spinous processes, sacrum or sacroiliac regions. EXTREMITIES: Lower extremities show deep tendon reflexes 1+ in the patellar and tendo calcaneus tendons. Motor exam is 5 on a scale of 5 with right dorsiflexion, extension, quadriceps and hamstring flexion and 5/5 on the left. Peripheral pulses are 1+ posterior tibial. No peripheral edema is noted bilaterally. Lower extremities are warm and dry to touch, equal in color and appearance. SKIN: Shows warm and dry, good turgor. No edema. No sores, rashes or bruising throughout. Procedure: Procedure: Options were discussed with the patient. Patient chart reviews her current medication regimen updated current review of systems updated today as well. We will proceed with refill of patient's oxycodone 10 mg with instructions side effects to be aware of. Patient will be given a 30-day supply as she has had appropriate K tracks report as well as appropriate urinalyses to date. Patient to follow-up in approximately 30 days as scheduled. Medication Injected: Med Injected: None Condition at Discharge: Condition at Discharge: Condition at discharge is stable. NATHAN VALERIO MD Aug 06, 2021 14:33
== END | disposition home or self-care (01) ==
LOC: PNCL 13:52
PROVIDERS: ATTEND Anesthesiology
DX: M51.16 Intervertebral disc disorders with radiculopathy, lumbar region (principal); M47.26 Other spondylosis with radiculopathy, lumbar region; M50.10 Cervical disc disorder with radiculopathy, unspecified cervical region; M79.18 Myalgia, other site; M19.012 Primary osteoarthritis, left shoulder; Z79.899 Other long term (current) drug therapy; Z88.1 Allergy status to other antibiotic agents; Z88.6 Allergy status to analgesic agent; Z88.8 Allergy status to other drugs, medicaments and biological substances
CPT/HCPCS: 99212; G0463

== ENCOUNTER → 2021-09-02 | Outpatient (CLI) | payer OTHER ==
--- NOTE | 2021-09-02 16:30 | PDOC ---
Progress Note - Pain Clinic Date of Service: DOS: DATE: 09/02/21 TIME: 16:28 Diagnosis: Dx: Lumbar radiculopathy with lumbar degenerative disease and lumbar spondylosis Cervical radiculopathy with cervical degenerative disease Myofascial pain Left shoulder joint pain with osteoarthritis History or Present Illness: HPI: 61-year-old female via telemedicine visit today with identity verified with full date of as well as full name, total time spent 12 minutes Patient via telemedicine visit for refill of oxycodone 10 mg. Patient has been on a very stable regimen with the medications still significant pain in the low back as well as the base of neck and shoulders but doing better with the medications and without any specific side effects. Patient reports still has some pain in the back in the shoulders Peyman radiating constant can be severe and burning with activity. Patient reports she is able to [place] most activities which exacerbate this and is able to avoid them or minimize them at the best. Patient reports no new side effects no new deficits has had appropriate K tracks report as well as appropriate urinalyses to date. Patient will be given refill for 30-day. With instructions side effects aware with the medications. Patient will follow-up in approximate 30 days as scheduled. Physical Exam: PE: NATHAN VALERIO MD Sep 02, 2021 16:30
--- NOTE | 2021-09-02 16:39 | NUR ---
Pt. called clinic requesting a refill on her oxycodone 10mg. Pt. states no new health issues or side effects from med. States her pain level averages 6/10. Pts. pharmace and next clinic appt. verified. Dr. Bowman to speak with pt prior to E-scribe. Jimmie Luciano RN
== END | disposition home or self-care (01) ==
LOC: PNCL 11:51
PROVIDERS: ATTEND Anesthesiology
DX: M51.16 Intervertebral disc disorders with radiculopathy, lumbar region (principal); M47.26 Other spondylosis with radiculopathy, lumbar region; M50.10 Cervical disc disorder with radiculopathy, unspecified cervical region; M79.18 Myalgia, other site; M19.012 Primary osteoarthritis, left shoulder; Z79.899 Other long term (current) drug therapy; Z88.1 Allergy status to other antibiotic agents; Z88.6 Allergy status to analgesic agent; Z88.8 Allergy status to other drugs, medicaments and biological substances
CPT/HCPCS: 99212; G0463

== ENCOUNTER → 2021-10-01 | Outpatient (CLI) | payer OTHER ==
--- NOTE | 2021-10-01 13:29 | PDOC ---
Progress Note - Pain Clinic Date of Service: DOS: DATE: 10/01/21 TIME: 13:24 Diagnosis: Dx: Myofascial pain Lumbar to colopathy with lumbar degenerative disease lumbar spondylosis Cervical radiculopathy with cervical degenerative disc disease Left shoulder joint pain with osteoarthritis History or Present Illness: HPI: 61-year-old female returns for follow-up status post medication management with oxycodone 10 mg. Patient reports she is doing very well is on a very stable regimen with medication still some pain in the low back as well as into the bilateral hips and lower extremities as well as some pain the base the neck and shoulders especially on the left side but fairly well managed with the medication. Patient reports no side effects with the medication has been on a v saurabh stable regimen with the oxycodone. Patient reports increased pain with increased activity but she is able to gauge this fairly well with her daily activities and to use it fairly in check without too many exacerbations. Patient reports she did increase her activity over the past week with some activities outside after some recent weather we have had and moving some snow but reports her pain is a 10 on scale 10 is worse over the past week 6 on average 6 its least and is a 6 today. Describes pain as aching and dull in the base the neck and shoulders also aching in the back burning at times in the back and into the hips which can be radiating can be constant with activity standing and walking repetitive motions with the upper extremities but without deficit no bowel or bladder incontinence. Patient reports overall proximately a 75% improvement with the medications and again without specific side effects. Physical Exam: VS: Blood pressure is 123/71 pulse 78 respirations 18 temperature 98.60 Fahrenheit height 5 feet 3 inches weight is 164 pounds PE: PHYSICAL EXAMINATION: GENERAL: The patient is awake, alert, oriented, appropriate, very pleasant in demeanor HEENT: Shows normocephalic, atraumatic. Extraocular movements are intact and symmetrical. Oral cavity: Mucous membranes moist and pink. Dentition is intact. NECK: Shows anterior throat supple without palpable lymphadenopathy noted. Swallow reflex symmetrical. CHEST: Shows normal on inspection. Breath sounds are clear bilaterally, no rales or rhonchi auscultated. HEART: Shows S1, S2 clear. No murmurs auscultated. ABDOMEN: Soft, nontender, nondistended. No palpable organomegaly is noted. BACK: Shows spine grossly in the midline. Normal-appearing cervical lordotic curvature. Cervical paraspinous muscles show symmetrical inspection, on palpation some moderate tenderness diffusely in the upper middle lower decrease the paraspinous muscles bilaterally but without specific trigger points or radiation. Patient shows good rotation motion cervical spine both laterally as well as extension flexion without significant difficulty. There is mildly increased thoracic kyphosis, some moderate flattening of the lumbar lordotic curvature. Lumbar paraspinous muscles show symmetrical on inspection, on palpation shows some moderate tenderness diffusely throughout the upper, middle and lower distribution of the paraspinous muscles without specific trigger points, without radiation of pain. The patient has good rotational motion of the lumbar spine, both laterally as well as extension and flexion without significant difficulty. No tenderness over the spinous processes, sacrum or sacroiliac regions. EXTREMITIES: Lower extremities show deep tendon reflexes 1 in the patellar and tendo calcaneus tendons. Motor exam is 5 on a scale of 5 with right dorsiflexion, extension, quadriceps and hamstring flexion and 5/5 on the left. Peripheral pulses are 1+ posterior tibial. No peripheral edema is noted bilaterally. Lower extremities are warm and dry to touch, equal in color and appearance. Upper extremities show deep tendon reflexes 2+ in the bicep triceps tendons, motor exam strong with pasta maker strength rated 5 out of 5 as is bicep tricep flexion bilaterally. SKIN: Shows warm and dry, good turgor. No edema. No sores, rashes or bruising throughout. Procedure: Procedure: Options were discussed with the patient. Patient's old chart was reviewed as her current medication regimen updated current review of systems updated today as well. Patient has had appropriate K tracks report as well as appropriate urinalyses to date. We will refill patient's oxycodone 10 mg with instructions and side effects beware of discussed. Patient given a 30-day prescription and will follow up in approximate 30 days as scheduled. Medication Injected: Med Injected: None Condition at Discharge: Condition at Discharge: Condition at discharge is stable. NATHAN VALERIO MD Oct 01, 2021 13:29
== END | disposition home or self-care (01) ==
LOC: PNCL 12:56
PROVIDERS: ATTEND Anesthesiology
DX: M79.18 Myalgia, other site (principal); M47.26 Other spondylosis with radiculopathy, lumbar region; M51.16 Intervertebral disc disorders with radiculopathy, lumbar region; M50.10 Cervical disc disorder with radiculopathy, unspecified cervical region; M19.012 Primary osteoarthritis, left shoulder; Z79.899 Other long term (current) drug therapy; Z88.8 Allergy status to other drugs, medicaments and biological substances
CPT/HCPCS: 99212; G0463

== ENCOUNTER → 2021-10-30 | Outpatient (CLI) | payer OTHER ==
--- NOTE | 2021-10-30 13:16 | NUR ---
Patient called requesting a refill, verified name date of , pharmacy, next appointment, and no changes in medication. patient states her level of pain is a 5,denies new medical problems, or allergies. ktracts is correct.
--- NOTE | 2021-10-30 14:26 | PDOC ---
Progress Note - Pain Clinic Date of Service: DOS: DATE: 10/30/21 TIME: 14:24 Diagnosis: Dx: Lumbar radiculopathy with lumbar degenerative disease and lumbar spondylosis Cervical radiculopathy with cervical degenerative disc disease Myofascial pain Left shoulder joint pain with osteoarthritis History or Present Illness: HPI: Telemedicine visit today with patient's identity verified with full name as well as full date of , total time spent 12 minutes, telephone voice only 61-year-old female via telemedicine visit today requesting refill of oxycodone patient has been on very stable regimen with the medication and reports no side effects patient reports her pain level is a 6 to a 7 on a scale of 10 reports pain in the low back but also in the neck and shoulders patient reports the medication does decrease the pain significantly by about 70 to 75% where she is able to perform her daily activities without significant limitation for the most part. Patient is cautious as to what activities she can do and can change these very well based on her response to her medication and pain level control. Patient reports no side effects with medications once again. Patient has had appropriate K tracks report as well as appropriate urinalyses to date. We discussed options with the patient and we will refill the medication for 30-day refill. Patient was given instruction as well as side effects were with the medication and will follow up in approximate 30 days as scheduled. Physical Exam: PE: NATHAN VALERIO MD Oct 30, 2021 14:26
== END | disposition home or self-care (01) ==
LOC: PNCL 09:13
PROVIDERS: ATTEND Anesthesiology
DX: M51.16 Intervertebral disc disorders with radiculopathy, lumbar region (principal); M50.10 Cervical disc disorder with radiculopathy, unspecified cervical region; M47.26 Other spondylosis with radiculopathy, lumbar region; M79.18 Myalgia, other site; M19.012 Primary osteoarthritis, left shoulder; Z79.899 Other long term (current) drug therapy; Z88.1 Allergy status to other antibiotic agents; Z88.8 Allergy status to other drugs, medicaments and biological substances
CPT/HCPCS: 99212; G0463

== ENCOUNTER → 2021-11-26 | Outpatient (CLI) | payer OTHER ==
--- NOTE | 2021-11-26 13:52 | PDOC ---
Progress Note - Pain Clinic Date of Service: DOS: DATE: 11/26/21 TIME: 13:49 Diagnosis: Dx: Lumbar radiculopathy with lumbar degenerative disease and lumbar spondylosis Cervical radiculopathy with cervical degenerative disease Myofascial pain Left shoulder joint pain with osteoarthritis History or Present Illness: HPI: 61-year-old female returns for follow-up status post medication management with oxycodone 10 mg patient reports she is doing very well with the medication without any side effects patient reports about a 70 to 80% improvement with medications and has been on very stable regimen with good consistent reduction in pain patient reports the pain is across the low back primarily and into the gluteus bilaterally burning and stabbing the back sharp in the legs at times radiating constant can be severe with standing walking changing positions patient reports her pain is a 10 on scale 10 is worse with the past week 5 on average 5 to [place] is a 5 today patient reports she can avoid most physical activities that will exacerbate the pain significantly such as repetitive bending lifting and climbing stairs but occasionally she is forced to do these things patient reports is better with sitting or laying down generally awakens her from sleep maybe once a night but not every night and if it does not more than once every 6 hours or so patient reports he can usually reposition and get back to sleep without significant difficulty patient reports no bowel or bladder incontinence again no side effects with medications. Patient is appropriate as well as appropriate urinalyses as well to date. Physical Exam: VS: Blood pressure is 133/71 pulse 77 respirations 18 temperature 99.1 F height is 5 feet 3 inches weight is 167 pounds. PE: PHYSICAL EXAMINATION: GENERAL: The patient is awake, alert, oriented, appropriate, very pleasant in demeanor HEENT: Shows normocephalic, atraumatic. Extraocular movements are intact and symmetrical. Patient wearing eyeglasses. Oral cavity: Mucous membranes moist and pink. Dentition is intact. NECK: Shows anterior throat supple without palpable lymphadenopathy noted. Swal low reflex symmetrical. CHEST: Shows normal on inspection. Breath sounds are clear bilaterally, no rales rhonchi or wheezes. HEART: Shows S1, S2 clear. No murmurs auscultated. ABDOMEN: Soft, nontender, nondistended. No palpable organomegaly is noted. BACK: Shows spine grossly in the midline. Normal-appearing cervical lordotic curvature. There is slightly increased thoracic kyphosis, some minor flattening of the lumbar lordotic curvature. Lumbar paraspinous muscles show symmetrical on inspection, on palpation shows some moderate tenderness diffusely throughout the upper, middle and lower distribution of the paraspinous muscles without specific trigger points, without radiation of pain. The patient has good rotational motion of the lumbar spine, both laterally as well as extension and flexion without significant difficulty. EXTREMITIES: Lower extremities show deep tendon reflexes 1+ in the patellar and tendo calcaneus tendons. Motor exam is 4 on a scale of 5 with right dorsiflexion, extension, quadriceps and hamstring flexion and 4/5 on the left. Peripheral pulses are 1+ posterior tibial. No peripheral edema is noted bilaterally. Lower extremities are warm and dry. Upper extremities show deep tendon reflexes 2+ in the bicep tricep tendons, motor exam strong with marketing services manager strength rated 5 out of 5 as is bicep tricep flexion. SKIN: Shows warm and dry, good turgor. No edema. No sores, rashes or bruising throughout. Procedure: Procedure: Options discussed with the patient. Patient's old chart was reviewed as her current medication regimen updated current review of systems updated today as well. We will refill patient's oxycodone 10 mg which will be electronically prescribed. Patient given instructions well side effects aware with medication. Patient will follow up in approximate 30 days as scheduled. Medication Injected: Med Injected: None Condition at Discharge: Condition at Discharge: Condition at discharge is stable. NATHAN VALERIO MD Nov 26, 2021 13:52
== END | disposition home or self-care (01) ==
LOC: PNCL 12:47
PROVIDERS: ATTEND Anesthesiology
DX: M51.16 Intervertebral disc disorders with radiculopathy, lumbar region (principal); M47.26 Other spondylosis with radiculopathy, lumbar region; M50.10 Cervical disc disorder with radiculopathy, unspecified cervical region; M79.18 Myalgia, other site; M19.012 Primary osteoarthritis, left shoulder; Z79.899 Other long term (current) drug therapy; Z88.1 Allergy status to other antibiotic agents; Z88.8 Allergy status to other drugs, medicaments and biological substances
CPT/HCPCS: 99212; G0463

== ENCOUNTER → 2021-12-24 | Outpatient (CLI) | payer OTHER ==
--- NOTE | 2021-12-24 16:14 | PDOC ---
Progress Note - Pain Clinic Date of Service: DOS: DATE: 12/24/21 TIME: 16:12 Diagnosis: Dx: Lumbar radiculopathy with lumbar degenerative disease lumbar spondylosis Cervical radiculopathy with cervical degenerative disc disease Myofascial pain Left shoulder joint pain with osteoarthritis History or Present Illness: HPI: Telemedicine visit today with patient standing verified with full name as well as full date of , total time spent 11 minutes, telephone voice only 61-year-old female via telemedicine visit today requesting refill of oxycodone 10 mg. Patient reports she has been doing very well with this and is still on a very stable regimen with the medication has been on it for an extended period of time with good tolerance. Patient reports no side effects with medication and reports that she is doing very well with this with an overall pain reduction of about 75% for the most part when she watches her activity and she is able to do this fairly effectively without exacerbating the pain in the low back legs or the neck and shoulders. Patient reports occasional spastic pains in the neck and shoulder as well as the low back worse with motions and being on her feet for longer than about 30minutes but better with sitting or laying down only awakens her from sleep about once a night at the most. Patient has had appropriate K tracks report as well as appropriate urinalyses to date as well. We discussed options with the patient we will refill patient's oxycodone 10 mg with instructions side effects aware of discussed. Patient has had appropriate K tracks report as well as appropriate urinalyses to date as well and we will have her follow-up in approximate 30 days as scheduled. Physical Exam: PE: NATHAN VALERIO MD December 24, 2021 16:14
--- NOTE | 2021-12-24 16:33 | NUR ---
Pt called clinic requesting refill on her oxycodone RX for her chronic pain issues. Pts. states no new health issues, side effects, new allergies. States her avg pain level is 5/10. Denies issues with constipation.. Pharmacy and next in clinic appt. verified. K tracs checked. Pt will speak with Dr. Bowman prior to E-scribe. Jimmie Luciano RN
== END | disposition home or self-care (01) ==
LOC: PNCL 15:12
PROVIDERS: ATTEND Anesthesiology
DX: M51.16 Intervertebral disc disorders with radiculopathy, lumbar region (principal); M47.26 Other spondylosis with radiculopathy, lumbar region; M50.10 Cervical disc disorder with radiculopathy, unspecified cervical region; M79.18 Myalgia, other site; M19.012 Primary osteoarthritis, left shoulder; Z79.899 Other long term (current) drug therapy; Z88.1 Allergy status to other antibiotic agents; Z88.8 Allergy status to other drugs, medicaments and biological substances
CPT/HCPCS: 99212; G0463